=== PATIENT | female | born 1930 | race Caucasian/White ===

== ENCOUNTER 2017-02-27 22:34 | Inpatient (IN) ==
[2017-02-27] MEDS ORDERED: Vancomycin 1,000 MG in D5% in Water 250 ML IVPB ONE (22:49)
[2017-02-27] MEDS ORDERED: Piperacillin/Tazobactam 4.5 GM in D5% in Water (Mini-Bag+) 100 ML IVPB ONE (22:49)
[2017-02-27] MEDS ORDERED: *HR* Adenosine 6 MG/2 ML VIAL IVP ONE ×2 (22:59→23:15)
[2017-02-27] MEDS ORDERED: 0.9 % Sodium Chloride 1,000 ML IVC SCH (23:00)
[2017-02-27 23:09] LABS: Basophils % 0.4 %; Eosinophils # 0.2 K/mcL (0.0-0.6); Eosinophils % 1.9 %; Hematocrit 34.7 % (35.3-44.9); Hemoglobin 11.4 g/dL (11.5-15.4); Immature Granulocytes % 0.4 % (0-4); Immature Platelets 5.7 % (1.1-6.1); Lymphocytes # 1.6 K/mcL (0.6-4.6); Mean Corpuscular HGB Conc 32.9 g/dL (31.6-35.5); Mean Corpuscular Hemoglobin 31.1 pg (28.0-33.3); Mean Corpuscular Volume 94.8 fL (83.0-100.0); Mean Platelet Volume 10.9 fL (9.4-12.4); Monocytes # 0.7 K/mcL (0.0-1.3); Monocytes % 6.8 %; Neutrophils # 7.5 K/mcL (1.6-8.9); Platelet Count 203 K/mcL (140-400); Red Blood Count 3.66 M/mcL (3.82-4.97); Red Cell Distribution Width 14.1 % (11.5-14.5); Segmented Neutrophils % 74.5 %
[2017-02-27 23:14] LABS: INR 1.1; Prothrombin Time 11.9 Seconds (9.4-12.1)
[2017-02-27 23:16] LABS: Activated Partial Thrombo Time 30.3 Seconds (26.0-36.0)
[2017-02-27 23:24] LABS: Alanine Aminotransferase 12 Units/L (0-55); Albumin/Globulin Ratio 1.2 (1.1-2.2); Alkaline Phosphatase 71 Units/L (38-126); Aspartate Amino Transferase 19 Units/L (5-34); BUN/Creatinine Ratio 20 (6-26); Bilirubin,Direct 0.2 mg/dL (0.0-0.5); Bilirubin,Indirect 0.3 mg/dL (0.0-1.2); Bilirubin,Total 0.5 mg/dL (0.2-1.2); Blood Urea Nitrogen 25 mg/dL (7-20); Calcium 10.1 mg/dL (8.6-10.8); Carbon Dioxide 24 mEq/L (19-29); Chloride 106 mEq/L (98-109); Globulin 3.3 g/dL (2.4-3.5); Glucose 104 mg/dL (70-99); Osmolality,Calculated 295 (280-300); Potassium 4.1 mEq/L (3.5-4.5); Sodium 140 mEq/L (136-145); Total Protein 7.3 g/dL (6.0-8.3); eGFR For African Americans 50 (> 60); eGFR For Non-African Americans 41 (> 60)
[2017-02-27 23:25] LABS: Ethanol < 10 mg/dL (0-10)
--- NOTE | 2017-02-27 23:29 | Emergency Department Note ---
START Narrative - START START: I examined this patient and my medical decision-making was reviewed with the Resident Physician. I agree with the documented findings, disposition and treatment plan as described except to the extent set forth below. In summary 87 -year-old female with a history of hydrocephalus who presents with acute confusion as well as tachycardia found at triage. She was brought straight back. She was found to be in a supraventricular tachycardia. She was having no chest pain at the time. Her hemodynamics were stable. We did proceed with 6 mg of a done a card. She did have some improvement of heart rate but again went into SVT. Vagal maneuvers were unsuccessful. Subsequent dose of adenosine were given. She had conversion with 12 mg of a done a card. She is now in a sinus tachycardia. I am concerned for possible underlying infection which could be precipitating SVT. As such she was started on broad-spectrum antibiotics, 30 mL per kilogram fluid bolus was initiated. Chest x-ray as well as other labs are altered mental status were obtained. We are still pending advanced imaging results. Plan to disposition the patient after evaluation of results of advanced imaging. I spent greater than 35 minutes of critical care time resuscitating this acutely ill patient suffering from supraventricular tachycardia requiring multiple medications. This is excluding billable procedures.
[2017-02-27 23:45] LABS: Thyroid Stimulating Hormone 2.305 mcIU/mL (0.350-4.840)
--- NOTE | 2017-02-28 00:02 | Emergency Department Note ---
Disposition Clinical Impression: SVT (supraventricular tachycardia), ROSEY (acute kidney injury) Cerebral infarct Qualifiers: Cerebral infarction mechanism: unspecified mechanism Qualified Code(s): I63.9 - Cerebral infarction, unspecified Disposition: Admitted As Inpatient Condition: Fair Referrals: Vania Kenny MD [Primary Care Provider] - Forms: ED Satisfaction Letter Time of Disposition: 00:24 Altered Mental Status HPI - General Chief Complaint: ED Altered Mental Status Stated Complaint: AMS Time Seen by Provider: 02/27/17 22:46 Source: patient Nursing Notes Reviewed: Yes Vital Signs Reviewed: Yes - History of Present Illness HPI Narrative: Patient's age 87-year-old female who presents secondary to altered mental status times several weeks. Patient's daughter states that patient does not recognize her father intermittently for the past several weeks now. She was recently diagnosed with hydrocephalus. Earlier today patient was having episodes of increasing confusion. Patient seemed to have periods where she completely spaced out and would not respond to any interaction. Patient was brought to the ED for evaluation. Patient was found to be in SVT but currently stable. Resuscitation warranted, crash cart brought the bedside. - Related Data Allergies Allergy/AdvReac Type Severity Reaction Status Date / Time No Known Allergies Allergy Verified 02/27/17 22:44 Review of Systems: Patient denies any pain or any discomforting symptoms. No focal neurological deficits seen by family members All systems ED: reviewed and negative except as stated. Review of Systems: As Per HPI Constitutional: Denies: fever Eyes: Denies: eye pain, vision change ENT ED: Denies: congestion Cardiovascular: Denies: chest pain, palpitations Respiratory: Denies: cough, dyspnea Gastrointestinal: Denies: abdominal pain, nausea, vomiting, diarrhea, hematemesis Genitourinary: Denies: urgency, dysuria Musculoskeletal: Denies: back pain, neck pain Integumentary: Denies: rash, abrasion Neurological: Denies: headache, weakness Psychiatric: Denies: anxiety Endocrine: Denies: fatigue Hematological/Lymphatic: Denies: easy bleeding Past Medical History - Past Medical History Attestation: Yes The following information was validated with the patient. Source: patient, obtained from family Medical history: Reports: other Psychiatric history: Reports: depression - Social History Smoking Status: Never smoker Alcohol use: Reports: none Drug use: Reports: none Physical Exam Vital Signs Temperature 98 F 02/27/17 22:38 Pulse Rate 169 02/27/17 22:38 Respiratory Rate 20 02/27/17 22:38 Blood Pressure 108/70 02/27/17 22:38 O2 Sat by Pulse Oximetry 97 02/27/17 22:38 Temperature 98 F 02/27/17 22:38 Pulse Rate 89 02/28/17 00:00 Respiratory Rate 16 02/28/17 00:00 Blood Pressure 152/88 02/28/17 00:00 O2 Sat by Pulse Oximetry 100 02/28/17 00:00 Oxygen Delivery Oxygen Delivery Nasal Cannula -General Appearance: Patient is a 57-year-old female who is alert and oriented 3 and in no acute distress. Patient lying comfortably and answers all questions -Neurological exam: Cranial nerves II-12 intact, no focal deficits observed, strength equal 5/5 bilaterally in upper and lower extremities, cerebellar motion test negative. Negative loss of sensation - Head Head exam: atraumatic, normocephalic, normal inspection - Eye Eye exam: Present: normal appearance, PERRL, EOMI, negative for scleral icterus negative for conjunctival pallor - ENT ENT exam: normal exam, normal oropharynx, mucous membranes moist - Neck Neck exam: Present: normal inspection, full ROM, trachea midline, negative JVD - Chest Chest inspection: Present: Patient has bilateral equal rise and fall of chest wall. Non-tender to palpation. - Respiratory Respiratory exam: Clear to auscultation bilaterally without wheezes rales or rhonchi Cardiovascular Cardiovascular exam: Present: Rapid rate, normal rhythm, normal heart sounds, without murmurs rubs or gallops. - Abdominal Exam Abdominal exam: Present: soft, nondistended, Non-Tender light and deep palpation in all quadrants. Bowel sounds normoactive throughout all 4 quadrants. Negative for hyper or hyperresonance. - Extremities Exam Extremities exam: Present: normal inspection, full ROM - Back Exam Back exam: Present: normal inspection, full ROM. Absent: tenderness, CVA tenderness (R), CVA tenderness (L) - Psychiatric Psychiatric exam: Present: normal affect, normal mood - Skin Skin exam: Present: warm, dry, intact, normal color - General General appearance: alert, in no apparent distress Course - Consultations Consultation #1: Dr. Abdullahi lance the hospitalist has accepted for admission 0010 hours Time: 00:11 Vital Signs Temperature 98 F 02/27/17 22:38 Pulse Rate 169 02/27/17 22:38 Respiratory Rate 20 02/27/17 22:38 Blood Pressure 108/70 02/27/17 22:38 O2 Sat by Pulse Oximetry 97 02/27/17 22:38 Temperature 98 F 02/27/17 22:38 Pulse Rate 169 02/27/17 22:38 Respiratory Rate 20 02/27/17 22:38 Blood Pressure 108/70 02/27/17 22:38 O2 Sat by Pulse Oximetry 97 02/27/17 22:38 Oxygen Delivery Oxygen Delivery Room Air Altered Mental Status - MDM Narrative Medical decision making narrative: Patient presents with worsening changes to her mental status, patient presents in SVT. Resuscitation the cardioversion ensued. Patient received 2 large-bore IVs, fluids, defib pads placed on patient's chest, labs and cultures drawn to investigate for possible infectious etiology. CT head ordered. Patient will headdown after resuscitation. Vagal maneuvers of bearing down or tries but were ineffective. Ordered 6 mg adenosine. EKG 12-lead was run and adenosine was pushed. Patient temporarily went back into normal sinus rhythm. No signs of dysrhythmia. After minute in sinus rhythm patient reassessed back into SVT. 12 mg adenosine was then ordered and pushed. Patient returned back to sinus rhythm and stayed. The rest patient's workup for labs and imaging has continued. Head CT shows Chest X-Ray 02/27/17 22:46 IMPRESSION: No acute cardiopulmonary disease. D/ / Rafy Rios MD / Rafy Rios MD Interpreting Provider: Rafy Rios MD Head CT 02/27/17 22:46 IMPRESSION: 1. No definite acute abnormality detected. 2. More focal area of hypoattenuation involving the white matter in the posterior right frontal region, which could conceivably represent a subacute infarct. However, this could also represent more focal small vessel ischemic disease. Findings were discussed with Crow Saldana at 11:46 pm on 02/27/2017. D/ / Elvin Wheat MD / Elvin Wheat MD Interpreting Provider: Elvin Wheat MD Patient is being admitted for new-onset cerebral infarct unknown time of onset. Family is unable to to give last known well but give a history symptoms started outside of the window for medical intervention. Plan is to admit patient to hospitalist service for neuro consultation. Patient has a NIH score of 14 not being able to convey her age correctly. Patient is around 325 aspirin by mouth. Patient will be admitted to the hospital for further workup. Patient has been accepted to hospitalist service by Dr. Lance. Patient family understands and agrees to treatment plan. - Medical Records Medical records reviewed: Yes I reviewed the patient's medical records. This is patient's first time. No previous records found - Lab Data Lab results reviewed: Yes I reviewed the patient's lab results. Lab results narrative: Short CBC 02/27/17 Range/Units 23:03 WBC 10.1 (4.3-11.1) K/mcL Hgb 11.4 L (11.5-15.4) g/dL Hct 34.7 L (35.3-44.9) % Plt Count 203 (140-400) K/mcL Neutrophils # 7.5 (1.6-8.9) K/mcL BMP 02/27/17 Range/Units 23:03 Sodium 140 (136-145) mEq/L Potassium 4.1 (3.5-4.5) mEq/L Chloride 106 (98-109) mEq/L Carbon Dioxide 24 (19-29) mEq/L BUN 25 H (7-20) mg/dL Creatinine 1.24 H (0.57-1.11) mg/dL Glucose 104 H (70-99) mg/dL Calcium 10.1 (8.6-10.8) mg/dL Cardiac Enzymes 02/27/17 Range/Units 23:03 Troponin I 0.00 (0-0.03) ng/mL Liver Function 02/27/17 Range/Units 23:03 Total Bilirubin 0.5 (0.2-1.2) mg/dL Direct Bilirubin 0.2 (0.0-0.5) mg/dL AST 19 (5-34) Units/L ALT 12 (0-55) Units/L Alkaline Phosphatase 71 (38-126) Units/L Albumin 4.0 (3.5-5.0) g/dL Result diagrams: 02/27/17 23:03 02/27/17 23:03 Lab Results 02/27/17 02/27/17 02/27/17 Range/Units 23:03 23:03 23:03 WBC 10.1 (4.3-11.1) K/mcL RBC 3.66 L (3.82-4.97) M/mcL Hgb 11.4 L (11.5-15.4) g/dL Hct 34.7 L (35.3-44.9) % MCV 94.8 (83.0-100.0) fL MCH 31.1 (28.0-33.3) pg MCHC 32.9 (31.6-35.5) g/dL RDW 14.1 (11.5-14.5) % Plt Count 203 (140-400) K/mcL MPV 10.9 (9.4-12.4) fL Immature Gran % 0.4 (0-4) % Seg Neutrophils % 74.5 % Lymphocytes % 16.0 % Monocytes % 6.8 % Eosinophils % 1.9 % Basophils % 0.4 % Neutrophils # 7.5 (1.6-8.9) K/mcL Lymphocytes # 1.6 (0.6-4.6) K/mcL Monocytes # 0.7 (0.0-1.3) K/mcL Eosinophils # 0.2 (0.0-0.6) K/mcL Basophils # 0.0 (0.0-0.2) K/mcL Immature Plt Fraction 5.7 (1.1-6.1) % PT 11.9 (9.4-12.1) Seconds INR 1.1 APTT 30.3 (26.0-36.0) Seconds Sodium 140 (136-145) mEq/L Potassium 4.1 (3.5-4.5) mEq/L Chloride 106 (98-109) mEq/L Carbon Dioxide 24 (19-29) mEq/L BUN 25 H (7-20) mg/dL Creatinine 1.24 H (0.57-1.11) mg/dL Est GFR ( Amer) 50 L (> 60) Est GFR (Non-Af Amer) 41 L (> 60) BUN/Creatinine Ratio 20 (6-26) Glucose 104 H (70-99) mg/dL Calculated Osmolality 295 (280-300) Lactic Acid (0.5-2.2) mmol/L Calcium 10.1 (8.6-10.8) mg/dL Total Bilirubin 0.5 (0.2-1.2) mg/dL Direct Bilirubin 0.2 (0.0-0.5) mg/dL Indirect Bilirubin 0.3 (0.0-1.2) mg/dL AST 19 (5-34) Units/L ALT 12 (0-55) Units/L Alkaline Phosphatase 71 (38-126) Units/L Troponin I (0-0.03) ng/mL Serum Total Protein 7.3 (6.0-8.3) g/dL Albumin 4.0 (3.5-5.0) g/dL Globulin 3.3 (2.4-3.5) g/dL Albumin/Globulin Ratio 1.2 (1.1-2.2) TSH 2.305 (0.350-4.840) mcIU/mL Ethyl Alcohol < 10 (0-10) mg/dL 02/27/17 02/27/17 Range/Units 23:03 23:03 WBC (4.3-11.1) K/mcL RBC (3.82-4.97) M/mcL Hgb (11.5-15.4) g/dL Hct (35.3-44.9) % MCV (83.0-100.0) fL MCH (28.0-33.3) pg MCHC (31.6-35.5) g/dL RDW (11.5-14.5) % Plt Count (140-400) K/mcL MPV (9.4-12.4) fL Immature Gran % (0-4) % Seg Neutrophils % % Lymphocytes % % Monocytes % % Eosinophils % % Basophils % % Neutrophils # (1.6-8.9) K/mcL Lymphocytes # (0.6-4.6) K/mcL Monocytes # (0.0-1.3) K/mcL Eosinophils # (0.0-0.6) K/mcL Basophils # (0.0-0.2) K/mcL Immature Plt Fraction (1.1-6.1) % PT (9.4-12.1) Seconds INR APTT (26.0-36.0) Seconds Sodium (136-145) mEq/L Potassium (3.5-4.5) mEq/L Chloride (98-109) mEq/L Carbon Dioxide (19-29) mEq/L BUN (7-20) mg/dL Creatinine (0.57-1.11) mg/dL Est GFR ( Amer) (> 60) Est GFR (Non-Af Amer) (> 60) BUN/Creatinine Ratio (6-26) Glucose (70-99) mg/dL Calculated Osmolality (280-300) Lactic Acid 1.4 (0.5-2.2) mmol/L Calcium (8.6-10.8) mg/dL Total Bilirubin (0.2-1.2) mg/dL Direct Bilirubin (0.0-0.5) mg/dL Indirect Bilirubin (0.0-1.2) mg/dL AST (5-34) Units/L ALT (0-55) Units/L Alkaline Phosphatase (38-126) Units/L Troponin I 0.00 (0-0.03) ng/mL Serum Total Protein (6.0-8.3) g/dL Albumin (3.5-5.0) g/dL Globulin (2.4-3.5) g/dL Albumin/Globulin Ratio (1.1-2.2) TSH (0.350-4.840) mcIU/mL Ethyl Alcohol (0-10) mg/dL - Radiology Data Radiology results reviewed: Yes I reviewed the patient's radiology results. Head CT 02/27/17 22:46 IMPRESSION: 1. No definite acute abnormality detected. 2. More focal area of hypoattenuation involving the white matter in the posterior right frontal region, which could conceivably represent a subacute infarct. However, this could also represent more focal small vessel ischemic disease. Findings were discussed with Crow Saldana at 11:46 pm on 02/27/2017. D/ / Elvin Wheat MD / Elvin Wheat MD Interpreting Provider: Elvin Wheat MD - EKG Data EKG attestation: Yes I reviewed and interpreted this EKG. EKG results narrative: EKG taken 02/27/2017 at 2240 hrs. shows SVT at a rate of [address] elevations or depressions any leads. No previous EKG for comparison. EKG taken after first 6 g of adenosine shows conversion to sinus tachycardia for a brief moment. Third EKG taken at 2312 hrs. shows sinus tachycardia that has been sustained after administration of 12 mg of adenosine. TPA Checklist - LKW: 3-4.5 hrs Add. Warnings/Precautions Patient/family understanding: The patient/family members have been counseled and understood the risk, benefit , and alternatives of treatment. NIH Stroke Scale - Level of Consciousness LOC: Alert - LOC Questions LOC Questions: Answers one correctly - LOC Commands LOC Commands: Performs both correctly - Best Gaze Best Gaze: Normal - Visual Visual: No visual loss - Facial Palsy Facial Palsy: Normal - Motor Arms Motor Arm-Left: No drift for 10 seconds Motor Arm-Right: No drift for 10 seconds - Motor Legs Motor Leg-Left: No drift for 5 seconds Motor Leg-Right: No drift for 5 seconds - Limb Ataxia Limb Ataxia: Absent of affected limb too weak to perform exam - Sensory Sensory: Normal - Best Language Best Language: No aphasia - Dysarthria Dysarthria: Normal - Extinction and Inattention Extinction and Inattention: Normal - NIHSS Total Score NIHSS Total Score: 1
[2017-02-28] MEDS ORDERED: Aspirin 325 MG TABLET PO ONE (00:08)
[2017-02-28] MEDS ORDERED: Naloxone 0.4 MG/ML INJ IVP PRN (00:34)
[2017-02-28] MEDS ORDERED: Ondansetron 4 MG/2 ML VIAL IVP PRN (00:34)
[2017-02-28] MEDS ORDERED: 0.9 % Sodium Chloride 1,000 ML IVC SCH (00:45)
--- NOTE | 2017-02-28 00:56 | Internal Med History&Physical ---
Date of Encounter: 02/28/17 Time of Encounter: 00:53 Assessment and Plan (1) Encephalopathy Current visit: Yes Status: Acute subacute change. Suspect due to underlying, progressive dementia subtype with hallucination and functional changes ? Was apparently worked up at [place] and reported hydrocephalus ? But CT head here demonstrated volume loss probably due to age and white matter changes suspicious for old infarct ? Consult neurology to assist in eval. PT/OT. (2) SVT (supraventricular tachycardia) Current visit: Yes Status: Acute aborted with adenosine. Tele (3) ROSEY (acute kidney injury) Current visit: Yes Status: Acute mild. IVF (4) Cerebral infarct Current visit: Yes Status: Acute possible subacute event. Neuro eval above Qualifiers: Cerebral infarction mechanism: unspecified mechanism Qualified Code(s): I63.9 - Cerebral infarction, unspecified Internal Medicine - H&P: HPI Chief complaint: AMS, dizzyness, unsteadiness, visual hallucination History of present illness: Ms. Olguin is a 87 year old female who is previously healthy, on no medications who presents with worsening mental changes in the last 2 months. She lives alone with and had been functioning well up to 2 months ago approximately with functional decline in ambulatory status needing a 3 prong cane for unsteadiness and dizziness. 1 month ago, she had a transient episode of not recognizing her and mistook her for a stranger. This became worse over the last week and it appears that she is selectively not recognizing her (and not family members) and wanted him out of the house. She also had visual hallucinations of people that were not present. Family reported a shuffling gait. While in the ER, she was found to be in SVT and converted with 6 mg of adenosine. No known cardiac hx reported Past Med Surg Social Fam HX - Past Medical History Medical history: other Psychiatric history: depression - Social History Smoking Status: Never smoker Alcohol use: none Drug use: none Internal Medicine - H&P: Meds Allergies No Known Allergies Allergy (Verified 02/27/17 22:44) All Systems PM: A 10-system review of systems was performed and is negative for pertinent findings except as documented above in the HPI. Review of systems: ROS 14 point review of systems reviewed as best as possible given presentation. Pertinent positive or negative as per HPI or otherwise reviewed as negative - Constitutional Vitals: Temp Pulse Resp BP Pulse Ox 98 F 89 16 162/101 100 02/27/17 22:38 02/28/17 00:27 02/28/17 00:51 02/28/17 00:51 02/28/17 00:00 Exam: General - AAO x 3 Psych - Appropriate affect/speech. No agitation Eyes - CHARLINE. Eye lids intact. No scleral icterus ENT - Oral mucosa pink, dentition intact. External ear clear/dry/intact. No thyromegaly Lymphatics - No cervical/inguinal lympadenopathy Neuro - No gross peripheral or central neuro deficits with intact CN 2-12 exam Heart - Sinus. RRR. S1 and S2 present. No added HS/murmurs appreciated. No elevated JVD appreciated. No calf swellings/erythema Lung - Adequate air entry b/l, No crackes/wheezes appreciated GI - Soft, non-tender. No hepatosplenomegaly/ascities. BS+ - No CVA/suprapubic tenderness or palpable bladder distension Skin - Intact. No rash/petechiae/ecchymosis. Warm extremities MSK - Joints with normal ROM. No joint swellings Internal Med - H&P Results - Labs CBC & Chem 7: 02/27/17 23:03 02/27/17 23:03
[2017-02-28 01:17] LABS: Bilirubin,Urine Negative (Negative); Blood,Urine Negative (Negative); Clarity,Urine Clear (Clear); Color,Urine Yellow (Yellow); Glucose,Urine (UA) Normal (Normal); Ketones,Urine Negative (Negative); Leukocyte Esterase,Urine Negative (Negative); Nitrite,Urine Negative (Negative); Protein,Urine Negative (Neg-Trace); Specific Gravity,Urine 1.011 (1.010-1.025); Urobilinogen,Urine Normal (Normal)
[2017-02-28 01:51] LABS: Amphetamine Screen,Urine Negative ng/mL (Cutoff=1000); Barbiturate Screen,Urine Negative ng/mL (Cutoff=200); Benzodiazepines Screen,Urine Negative ng/mL (Cutoff=200); Cannabinoid Screen,Urine Negative ng/mL (Cutoff = 50); Cocaine Screen,Urine Negative ng/mL (Cutoff= 300); Opiate Screen,Urine Negative ng/mL (Cutoff=300); Phencyclidine Screen,Urine Negative ng/mL (Cutoff=25)
[2017-02-28 04:52] LABS: BUN/Creatinine Ratio 21 (6-26); Blood Urea Nitrogen 21 mg/dL (7-20); Calcium 9.2 mg/dL (8.6-10.8); Carbon Dioxide 27 mEq/L (19-29); Chloride 110 mEq/L (98-109); Chol/HDL Ratio 3.3 (0-4.9); Cholesterol 214 mg/dL (< 200); Glucose 85 mg/dL (70-99); HDL Cholesterol 65 mg/dL (40-59); LDL Cholesterol,Calculated 139 mg/dL (0-99); Osmolality,Calculated 298 (280-300); Potassium 4.1 mEq/L (3.5-4.5); Sodium 143 mEq/L (136-145); Triglycerides 50 mg/dL (< 150); eGFR For African Americans > 60 (> 60); eGFR For Non-African Americans 52 (> 60)
[2017-02-28] MEDS: Aspirin 81 MG TAB.CHEW PO SCH (07:48)
[2017-02-28] MEDS: *HR* Heparin 5,000 UNIT/ML VIAL SQ SCH ×2 (07:48→17:21)
[2017-02-28] MEDS ORDERED: Famotidine 20 MG TABLET PO SCH (09:00)
--- NOTE | 2017-02-28 11:01 | Event Note ---
<JanessausNoesoniya - Last Filed: 02/28/17 16:13> Date of Encounter: 02/28/17 Time of Encounter: 10:53 87 year old female evaluated at bedside. She is alert and oriented to person and place, in no acute distress. Patient denies nausea, vomiting, diarrhea, fever, chills. Multiple family members were in the room with patient. Physical Exam: General: alert and oriented to person and place, in no acute distress Eyes: PERRL, mild left eye ptosis CV: RRR, no murmurs, rubs, gallops Respiratory: bilateral upper lobe rales noted Extremities: no cyanosis or edema or clubbing noted. Gait: patient has unsteady gait and cannot walk without support of cane Neuro: decreased cerebellar function noted, decreased muscle strength testing. Assessment/Plan 1. Encephalopathy CT head showed possible subacute infarct in posterior frontal region Etiologies include: dementa vs. vitamin deficiency vs. hydrocephalus Plan: Appreciate neuro recs Started Seroquel ER HS MRI head pending PT/OT nutrition ocnsulted check folate, B12, RPR Echo pending carotid duplex pending 2. SVT resolved with adenosine. continue to monitor with tele 3. ROSEY: resolved with IVF 4. cerebral infarct Plan as #1 above 5. DVT prophylaxis Heparin SQ <Kevin Garcia - Last Filed: 02/28/17 17:05> Date of Encounter: 02/28/17 I examined this patient and my medical decision-making was reviewed with the Resident Physician on 02/28/17. I agree with the documented findings, disposition and treatment plan as described except to the extent set forth below. 87 F Seen and evaluated with family at bedside She has been having worsening confusion, hallucination and new urinary incontinence as well as unsteady gait Secondary cause of dementia work up negative so far R/O Normal pressure hydrocephalus, agree with Brain MRI Add Seroquel for Agitation/behavioural changes ROSEY is improving, D/C IVF SVT has resolved, continue telemetry Follow carotid doppler and ECHO Rest of details as above
[2017-02-28] MEDS ORDERED: *HR* Adenosine 12 MG/4 ML VIAL IV ONE (11:20)
--- NOTE | 2017-02-28 13:30 | Neurology - Consult Note ---
Date of Encounter: 02/28/17 Time of Encounter: 13:27 Assessment and Plan (1) Dementia with behavioral disturbance Current Visit: Yes Status: Acute This is an 87 year old woman who has been experiencing slowly progressive cognitive decline with significant behavioral changes with visual hallucinations. per history, this occurred over the last 4-5 months with then accelerated decline over the last few weeks which may be related to ongoing medical conditions, including renal insufficiency and SVT. Patient;s symptoms improved since admission. Will recommend MRI of brain to rule out new infarct. Laboratory study already ordered. Will recommend small dose of ER form of seroquel for hallucinations. Possible side effects discussed with family members. Qualifiers: Dementia type: Alzheimer's disease Alzheimer's disease onset: late-onset Qualified Code(s): G30.1 - Alzheimer's disease with late onset; F02.81 - Dementia in other diseases classified elsewhere with behavioral disturbance (2) Normal pressure hydrocephalus Current Visit: Yes Status: Acute Patient's CT of head showed features of mild NPH. Clinically she has dementia and gait difficulty but no bowel and bladder incontinence. Due to her age and probable dementia it is felt that NPH is likely not the sole cause of her cognitive decline and that surgical intervention is of unclear benefits. But option of surgical intervention was discussed with the family members. Plan is to treat her conservatives and may be a repeat CT of head can be done in 3 months and may be even a therapeutic LP can be done at an outpatient. History of Present Illness Chief complaint: visual hallucination and altered mental status HPI: Ms. Olguin is a 87 year old female with PMH significant for dementia who presented with worsening cognitive decline. Patient interviewed in the presence of her son, daughter and . Patient currently feels fine and sits comfortably in the chair, is able to walk without assistance. Daughter who knew better of her medical condition reports a gradually worsening cognitive decline over the last 4-5 months with accelerated decline in the last two weeks. Patient has been experiencing visual hallucinations and some paranoid ideation, especially in the form of not recognizing her and thought she saw two of her in the room and bunch of children as well. Daughter relates that at times it was hard to convince her that the person was her . Son mentions that that visual hallucination of not recognizing her only occur with her , no body else. Also patient mentions that over the last few months they noticed that her walking is unsteady. She did fall few times in the last few months but no significant injuries reported. It was reported that the patient had a CT of head done in December/2016 showing findings suggesting NPH due to presence of enlargement of bilateral ventricles out of proportion of sulci atrophy. it was thought that the patient may have normal pressure hydrocephalus. she was suggested to see neurosurgery at [facility] but she has not. Patient had repeat CT of head here at ER but no reports of hydrocephalus. Some subtle focal hypointensity noted. MRI of brain recommended for further evaluation. Patient was given Donezepil by PCP but it caused some GI symptoms and it had to be D/Pee. Past Med Surg Social Fam HX - Past Medical History Medical history: other Psychiatric history: depression - Social History Smoking Status: Never smoker Alcohol use: none Drug use: none Medications and Allergies Ergocalciferol (VITAMIN D2) [Vitamin D] 800 unit PO DAILY 02/28/17 [History] Multivit with Calcium,Iron,Min [One Daily Women's] 1 tab PO DAILY 02/28/17 [ History] Mv-Mn/FA/Vit K1/Lycop/Lut/Zeax [Ocuvite Eye + Multi Tablet] 1 tab PO DAILY 02/28 [History] Allergies No Known Allergies Allergy (Verified 02/27/17 22:44) All Systems: A 10-system review of systems was performed and is negative for pertinent findings except as documented above in the HPI. Physical Examination - Vital Signs Vital Signs: Initial Vital Signs Temp Pulse Resp BP Pulse Ox 98 F 169 20 108/70 97 02/27/17 22:38 02/27/17 22:38 02/27/17 22:38 02/27/17 22:38 02/27/17 22:38 - Neurologic Sensorimotor examination: other (Grossly intact) Detailed motor examination: grossly full strength in all extremities Motor examination - right side: 5/5: deltoids, biceps, triceps, wrist flexion, wrist extension, farmworker fruit, hip flexors, tibialis Anterior, quadriceps, toe extension (EHL), plantarflexion Motor examination - left side: 5/5: deltoids, biceps, triceps, wrist flexion, wrist extension, hip flexors, farmworker fruit, quadriceps, tibialis Anterior, toe extension (EHL), plantarflexion Detailed sensory examination: other (Grossly intact) Reflex and gait examination: intact Reflexes: Biceps: 1+, Triceps: 1+, Brachioradialis: 1+, Patella: 1+, Achilles: 1 + Mental Status Examination: awake, alert, oriented to person, oriented to place, oriented to time, follows commands appropriately, answers questions appropriately, no agnosia, no aphasia, no aproxia Cranial nerve examination: PERRL, EOMI, visual la intact, corneal reflexes brisk symmetrically, sensory to face intact, mastication intact, no facial asymmetry is present, no dysarthria, hearing is intact symmetrically, soft palate elevates bilaterally upon phonation, gag reflex intact, flexes SCM and trapezius muscles symmetrically with full power, tongue protrudes midline, no atrophy or facial fasiculations present Results - Laboratory Findings CBC and BMP: 02/27/17 23:03 02/28/17 04:29 Abnormal lab findings: Abnormal lab results RBC 3.66 M/mcL (3.82-4.97) L 02/27/17 23:03 Hgb 11.4 g/dL (11.5-15.4) L 02/27/17 23:03 Hct 34.7 % (35.3-44.9) L 02/27/17 23:03 Chloride 110 mEq/L (98-109) H 02/28/17 04:29 BUN 21 mg/dL (7-20) H 02/28/17 04:29 Est GFR (Non-Af Amer) 52 (> 60) L 02/28/17 04:29 POC Glucose 93 (58-89) H 02/28/17 11:04 Cholesterol 214 mg/dL (< 200) H 02/28/17 04:29 LDL Cholesterol, Calc 139 mg/dL (0-99) H 02/28/17 04:29 HDL Cholesterol 65 mg/dL (40-59) H 02/28/17 04:29 Consult Discharge Plan - Plan Referrals: Vania Kenny MD [Primary Care Provider] - (called twice and left message)
--- NOTE | 2017-02-28 20:27 | Electrocardiograph Report ---
[address] [place] [address] Test Date: 2017-02-27 Pat Name: Jina Olguin Department: 105 Room: 2A23 Gender: F Head Miller: : 1930 Requested By: Kevin Garcia Order Number: [id number] Reading MD: Prabhakar Carter MD Measurements Intervals [place] Rate: 168 P: GA: 0 QRS: 28 QRSD: 85 T: 43 QT: 263 QTc: 355 Interpretive Statements SUPRAVENTRICULAR TACHYCARDIA Electronically Signed On 02-28-2017 20:25:55 EDT by Prabhakar Carter MD
--- NOTE | 2017-02-28 20:28 | Electrocardiograph Report ---
[place] [address] Test Date: 2017-02-27 Pat Name: Jina Olguin Department: 104 Room: 2A23 Gender: F Chief Service Dispatcher: EMELY : 1930 Requested By: Crow Saldana Order Number: [id number] Reading MD: Prabhakar Carter MD Measurements Intervals [place] Rate: 108 P: 72 ME: 193 QRS: 75 QRSD: 75 T: 65 QT: 306 QTc: 370 Interpretive Statements SINUS TACHYCARDIA Electronically Signed On 02-28-2017 20:26:26 EDT by Prabhakar Carter MD
[2017-03-01] MEDS ORDERED: Haloperidol Lactate 5 MG/ML VIAL IVP ONE (03:51)
[2017-03-01] MEDS ORDERED: Haloperidol Lactate 5 MG/ML VIAL ONE (03:59)
[2017-03-01 07:54] LABS: Basophils % 0.6 %; Eosinophils # 0.3 K/mcL (0.0-0.6); Eosinophils % 4.5 %; Hematocrit 34.3 % (35.3-44.9); Hemoglobin 11.2 g/dL (11.5-15.4); Immature Granulocytes % 0.3 % (0-4); Lymphocytes # 1.5 K/mcL (0.6-4.6); Lymphocytes % 21.1 %; Mean Corpuscular HGB Conc 32.7 g/dL (31.6-35.5); Mean Corpuscular Hemoglobin 30.8 pg (28.0-33.3); Mean Corpuscular Volume 94.2 fL (83.0-100.0); Monocytes # 0.7 K/mcL (0.0-1.3); Neutrophils # 4.5 K/mcL (1.6-8.9); Platelet Count 153 K/mcL (140-400); Red Blood Count 3.64 M/mcL (3.82-4.97); Segmented Neutrophils % 63.5 %
[2017-03-01 08:12] LABS: BUN/Creatinine Ratio 20 (6-26); Blood Urea Nitrogen 18 mg/dL (7-20); Calcium 9.6 mg/dL (8.6-10.8); Carbon Dioxide 22 mEq/L (19-29); Chloride 108 mEq/L (98-109); Glucose 87 mg/dL (70-99); Osmolality,Calculated 289 (280-300); Potassium 4.6 mEq/L (3.5-4.5); Sodium 139 mEq/L (136-145); eGFR For African Americans > 60 (> 60); eGFR For Non-African Americans 58 (> 60)
[2017-03-01] MEDS: *HR* Heparin 5,000 UNIT/ML VIAL SQ SCH ×2 (09:34→17:05)
[2017-03-01] MEDS: amLODIPine 5 MG TABLET PO SCH ×2 (09:35→09:41)
[2017-03-01] MEDS: Aspirin 81 MG TAB.CHEW PO SCH (09:41)
[2017-03-01] MEDS: Famotidine 20 MG TABLET PO SCH (09:41)
[2017-03-01] MEDS ORDERED: Sennosides 8.6 MG TABLET PO PRN (10:46)
[2017-03-01 10:50] LABS: Folate 16.6 ng/mL (7.0-31.4)
[2017-03-01] MEDS ORDERED: Haloperidol Lactate 5 MG/ML VIAL IVP PRN (11:05)
[2017-03-01] MEDS: Sennosides 8.6 MG TABLET PO SCH ×2 (15:11→20:11)
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
--- NOTE | 2017-03-01 17:56 | Neurology Progress Note ---
Date of Encounter: 03/01/17 Time of Encounter: 17:51 Assessment and Plan (1) Dementia with behavioral disturbance Current Visit: Yes Status: Acute As discussed earlier, likely patient has developed dementia with behavioral manifestations, over the last few months Will try Seroquel er 25 mg daily, May benefit from acetylcholinesterase therapy but recognized that he has had some adverse effect from taking Aricept. She will be follow up with me in neurology in 03/2017. May try namenda at the time. Treatment largely empirical and symptomatic though. Will sign off please call if any questions Qualifiers: Dementia type: Alzheimer's disease Alzheimer's disease onset: late-onset Qualified Code(s): G30.1 - Alzheimer's disease with late onset; F02.81 - Dementia in other diseases classified elsewhere with behavioral disturbance (2) Normal pressure hydrocephalus Current Visit: Yes Status: Acute Subjective Principal diagnosis: dementia with behavioral changes Interval history: Patient seen and examined. She is feeling well and is in sitting position and happily eating. Daughter mentioned that she ate usually large meal today. No complaints. MRI of brain completed and reviewed. it showed no acute intracranial abnormality. Objective - Constitutional Vitals: Temp Pulse Resp BP Pulse Ox 98.1 F 88 16 110/74 98 03/01/17 15:59 03/01/17 15:59 03/01/17 15:59 03/01/17 15:59 03/01/17 15:59 - Neurological Exam Sensorimotor examination: Present: other (Grossly intact) Motor Examination: Present: grossly full strength in all extremities Motor examination - left side: 5/5: deltoids, biceps, triceps, wrist flexion, wrist extension, hip flexors, stucco applicator, quadriceps, tibialis Anterior, toe extension (EHL), plantarflexion Sensation intact: Present: other (Grossly intact) Reflex and gait examination: intact Mental Status Examination: Present: awake, alert, oriented to person, oriented to place, oriented to time, follows commands appropriately, answers questions appropriately, no agnosia, no aphasia, no aproxia Cranial nerve examination: Present: PERRL, EOMI, visual la intact, corneal reflexes brisk symmetrically, sensory to face intact, mastication intact, no facial asymmetry is present, no dysarthria, hearing is intact symmetrically, soft palate elevates bilaterally upon phonation, gag reflex intact, flexes SCM and trapezius muscles symmetrically with full power, tongue protrudes midline, no atrophy or facial fasiculations present Results - Laboratory Findings CBC and BMP: 03/01/17 07:47 03/01/17 07:47 Abnormal lab findings: Abnormal lab results RBC 3.64 M/mcL (3.82-4.97) L 03/01/17 07:47 Hgb 11.2 g/dL (11.5-15.4) L 03/01/17 07:47 Hct 34.3 % (35.3-44.9) L 03/01/17 07:47 Potassium 4.6 mEq/L (3.5-4.5) H 03/01/17 07:47 Est GFR (Non-Af Amer) 58 (> 60) L 03/01/17 07:47 Cholesterol 214 mg/dL (< 200) H 02/28/17 04:29 LDL Cholesterol, Calc 139 mg/dL (0-99) H 02/28/17 04:29 HDL Cholesterol 65 mg/dL (40-59) H 02/28/17 04:29 Consult Discharge Plan - Plan Referrals: Vania Kenny MD [Primary Care Provider] - (called twice and left message)
[2017-03-01 23:22] LABS: Basophils % 0.4 %; Eosinophils # 0.3 K/mcL (0.0-0.6); Eosinophils % 3.7 %; Hematocrit 32.3 % (35.3-44.9); Hemoglobin 10.7 g/dL (11.5-15.4); Immature Granulocytes % 0.7 % (0-4); Lymphocytes # 1.5 K/mcL (0.6-4.6); Lymphocytes % 20.7 %; Mean Corpuscular HGB Conc 33.1 g/dL (31.6-35.5); Mean Corpuscular Hemoglobin 31.6 pg (28.0-33.3); Mean Corpuscular Volume 95.3 fL (83.0-100.0); Mean Platelet Volume 10.9 fL (9.4-12.4); Monocytes # 0.6 K/mcL (0.0-1.3); Monocytes % 8.2 %; Neutrophils # 4.7 K/mcL (1.6-8.9); Platelet Count 189 K/mcL (140-400); Red Blood Count 3.39 M/mcL (3.82-4.97); Red Cell Distribution Width 14.2 % (11.5-14.5); Segmented Neutrophils % 66.3 %
[2017-03-01 23:34] LABS: Calcium 9.4 mg/dL (8.6-10.8)
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
[2017-03-02] MEDS: *HR* Heparin 5,000 UNIT/ML VIAL SQ SCH ×2 (06:53→17:44)
[2017-03-02] MEDS ORDERED: 0.9 % Sodium Chloride 500 ML IVC ONE (08:36)
--- NOTE | 2017-03-02 09:14 | Internal Med Progress Note ---
<Rebekah Metcalf - Last Filed: 03/02/17 11:43> Date of Encounter: 03/02/17 Time of Encounter: 09:10 - Assessment and plan (1) ROSEY (acute kidney injury) Current Visit: Yes Status: Acute Assessment and plan: patient's ROSEY had initially resolved, but Cr this am was 1.49, normal yesterday. etiology unclear at this time. patient states she has been drinking adequately yesterday. Plan: repeat BMP urinalysis urine sodium and urine Cr pending. encourage oral hydration. 500cc bolus given this morning. will re check tomorrow morning. (2) Encephalopathy Current Visit: Yes Status: Acute Assessment and plan: CT head showed possible subacute infarct in posterior frontal region Etiologies include: dementa MRI of head showed no acute infarct. Folate, B12 normal. Echo showed mild LV systolic dysfunction, LVEF 40-45%, mild LV hypokinesis, mild asymmetric LV basal septal hypertrophy, no evidence of LVOT obstruction. mild diastolic dysfunction. mild aortic and mitral regurg, no pulmonary HTN prelim vascular study showed normal bilateral carotids. RPR normal. Plan: Appreciate neuro recs Started Seroquel ER HS PT/OT recommended outpatient rehab nutrition consulted continue aricept. ROSEY workup (3) SVT (supraventricular tachycardia) Current Visit: Yes Status: Resolved Assessment and plan: resolved with adenosine. continue to monitor with tele (4) Cerebral infarct Current Visit: Yes Status: Acute Assessment and plan: plan as above Qualifiers: Cerebral infarction mechanism: unspecified mechanism Qualified Code(s): I63.9 - Cerebral infarction, unspecified (5) DVT prophylaxis Current Visit: Yes Status: Acute Assessment and plan: heparin SQ - Subjective Interval history: 87 year old female evaluated at bedside. patient was laying in bed asleep during exam. she denies nausea, vomiting, diarrhea, fever, chills, chest pain, shortness of breath. she states she has been eating and drinking fine today. she denies any further complaints. - Constitutional Vitals: Temp Pulse Resp BP Pulse Ox 97.7 F 62 16 109/62 99 03/02/17 07:21 03/02/17 07:21 03/02/17 07:21 03/02/17 07:21 03/02/17 07:21 General appearance: Present: A&O X 2, pleasant, no acute distress, answers questions appropriately - Head Head exam: Present: atraumatic, normocephalic - Neck Neck exam general surgery: Present: supple, trachea midline - Respiratory Respiratory exam: Present: CTAB - Cardiovascular Cardiovascular exam: Present: RRR, +S1, +S2 - GI/Abdominal GI/Abdominal exam: Present: normal bowel sounds, soft. Absent: distended, tenderness - Extremities Exam Extremities exam: Absent: cyanotic, pedal edema - Neurological Exam Neurological exam: Present: alert, oriented X3 Additional comments: gait abnormality, patient has trouble with memory. decreased strength that is symmetrical. - Psychiatric Psychiatric exam: Present: normal affect, normal mood - Skin Skin exam: Present: intact Internal Medicine: Result - Labs CBC & Chem 7: 03/01/17 23:10 03/02/17 09:43 Labs: Short CBC 03/01/17 Range/Units 23:10 WBC 7.0 (4.3-11.1) K/mcL Hgb 10.7 L (11.5-15.4) g/dL Hct 32.3 L (35.3-44.9) % Plt Count 189 (140-400) K/mcL Neutrophils # 4.7 (1.6-8.9) K/mcL BMP 03/01/17 23:10 Sodium 137 Potassium 4.0 Chloride 104 Carbon Dioxide 25 BUN 34 H D Creatinine 1.49 H D Glucose 123 H Calcium 9.4 - ABG Interpretation ABG results: PT/INR, D-dimer PT 11.9 Seconds (9.4-12.1) 02/27/17 23:03 Consult Discharge Plan - Plan Additional Instructions: follow up with primary care doctor within one week of discharge take all medications as prescribed return to emergency department if patient has fevers, chills, chest pain, or shortness of breath. Referrals: Vania Kenny MD [Primary Care Provider] - 03/06/17 9:00 am ( ) Lisa Olea MD [Partnered Physician] - Prescriptions: Donepezil [Aricept] 5 mg PO HS #30 tab Quetiapine Fumarate [Seroquel] 12.5 mg PO HS #30 tab <Kevin Garcia T - Last Filed: 03/02/17 15:45> Date of Encounter: 03/02/17 - Constitutional Vitals: Temp Pulse Resp BP Pulse Ox 98.3 F 74 16 127/73 100 03/02/17 11:14 03/02/17 11:14 03/02/17 11:14 03/02/17 11:14 03/02/17 11:14 Internal Medicine: Result - Labs CBC & Chem 7: 03/01/17 23:10 03/02/17 09:43 Labs: Short CBC 03/01/17 Range/Units 23:10 WBC 7.0 (4.3-11.1) K/mcL Hgb 10.7 L (11.5-15.4) g/dL Hct 32.3 L (35.3-44.9) % Plt Count 189 (140-400) K/mcL Neutrophils # 4.7 (1.6-8.9) K/mcL BMP 03/01/17 03/02/17 23:10 09:43 Sodium 137 140 Potassium 4.0 4.7 H Chloride 104 109 Carbon Dioxide 25 23 BUN 34 H D 32 H Creatinine 1.49 H D 1.22 H Glucose 123 H 94 Calcium 9.4 9.5 Urine 03/02/17 Range/Units 15:16 Urine Color Yellow (Yellow) Urine Clarity Clear (Clear) Urine pH 6.0 (5.0-8.0) pH Units Ur Specific [place] 1.014 (1.010-1.025) Urine Protein Negative (Neg-Trace) mg/dL Urine Glucose (UA) Normal (Normal) mg/dL - ABG Interpretation ABG results: PT/INR, D-dimer PT 11.9 Seconds (9.4-12.1) 02/27/17 23:03 - Attending Attestation I examined this patient and my medical decision-making was reviewed with the Resident Physician on 03/02/17. I agree with the documented findings, disposition and treatment plan as described except to the extent set forth below. 87 F Seen and evaluated with family at bedside Hx of white coat HTN, Dementia Seen and evaluated at bedside No new complains She had episodes of Hypotension overnight, and her renal function today is slighlty worse Amlodipine has been discontinued and she received IVF gentle bolus X1 Physical exam; Pleasantly confused, not in distress, moves all extremities equally, alert and oriented X2. Chest is clear HS S1, S2 only, no m/g/r, abdomen is benign, no pedal edema Brain MRI no hydrocephalus, no infarct Acute encephalopathy secondary to progressing dementia with behavioural abnormalities-No more aggression or agitatio, continue aricept and seroquel ROSEY: IVF, repeat Chem a.m HTN-Posisbly secondary to agitation as blood pressure has been WNL and low on medications, monitor closely Fall precautions High risk for delirium Rest of details as in resident physician's documentation
[2017-03-02] MEDS: Famotidine 20 MG TABLET PO SCH (09:19)
[2017-03-02] MEDS: Aspirin 81 MG TAB.CHEW PO SCH (09:19)
[2017-03-02 10:10] LABS: Calcium 9.5 mg/dL (8.6-10.8); Potassium 4.7 mEq/L (3.5-4.5)
--- NOTE | 2017-03-02 15:26 | Carotid Imaging Report ---
Carotid Duplex Patient Name:Jina Olguin Order Number:[id number] Procedure Date:02/28/2017 Date:2Age:87 yrs Gender:Female Rt.BP:157 / 84 mmHgHeart Rate: Location:[facility] Room #: 23 Orchard Manager:Katie Hensley, JUAN Referring MD:Jas Hastings DO ore smelter:Vania Kenny MD Reading MD:Elmo Campos MD , FACS Primary Indications:CVA Impressions: Findings: Bilateral carotid systems essentially normal. Findings Carotid Duplex: Right: The right proximal common carotid artery has a PSV of 61 cm/s and a EDV of 10 cm/s. The right mid common carotid artery has a PSV of 57 cm/s and a EDV of 13 cm/s. The right distal common carotid artery has a PSV of 53 cm/s and a EDV of 13 cm/s. The right bifurcation has a PSV of 49 cm/s and a EDV of 11 cm/s. The right proximal internal carotid artery has a PSV of 34 cm/s and a EDV of 12 cm/s. The right mid internal carotid artery has a PSV of 44 cm/s and a EDV of 14 cm/s. The right distal internal carotid artery has a PSV of 60 cm/s and a EDV of 17 cm/s. The right eca has a PSV of 32 cm/s and a EDV of 9 cm/s. The right vertebral artery has a PSV of 63 cm/s and a EDV of 13 cm/s. There is antegrade spectral Doppler flow patterns. Left: The left proximal common carotid artery has a PSV of 47 cm/s and a EDV of 10 cm/s. The left mid common carotid artery has a PSV of 50 cm/s and a EDV of 8 cm/s. The left distal common carotid artery has a PSV of 54 cm/s and a EDV of 10 cm/s. The left bifurcation has a PSV of 38 cm/s and a EDV of 9 cm/s. The left proximal internal carotid artery has a PSV of 42 cm/s and a EDV of 13 cm/s. The left mid internal carotid artery has a PSV of 68 cm/s and a EDV of 16 cm/s. The left distal internal carotid artery has a PSV of 84 cm/s and a EDV of 26 cm/s. The left eca has a PSV of 94 cm/s and a EDV of 9 cm/s. The left vertebral artery has a PSV of 65 cm/s and a EDV of 12 cm/s. There is antegrade spectral Doppler flow patterns. Prior Study: No prior study available for comparison. Carotid Results Right PSV EDV Assessment Proximal CCA 61 10 Mid CCA 57 13 Distal CCA 53 13 Bifurcation 49 11 Proximal ICA 34 12 Mid ICA 44 14 Distal ICA 60 17 ECA 32 9 Vertebral Artery 63 13 Antegrade Flow Left PSV EDV Assessment Proximal CCA 47 10 Mid CCA 50 8 Distal CCA 54 10 Bifurcation 38 9 Proximal ICA 42 13 Mid ICA 68 16 Distal ICA 84 26 ECA 94 9 Vertebral Artery 65 12 Antegrade Flow Ratio's Right ICA/CCA Ratio: 1.05 ICA/CCA Values: 60/57 Left ICA/CCA Ratio: 1.70 ICA/CCA Values: 84/50 Updated by Elmo Campos MD, FACS on 03/02/2017 3:21:45 PM Elmo Campos MD electronically signed on 03/02/2017 3:22:07 PM with status of Final
[2017-03-02 15:33] LABS: Bilirubin,Urine Negative (Negative); Blood,Urine Negative (Negative); Clarity,Urine Clear (Clear); Color,Urine Yellow (Yellow); Glucose,Urine (UA) Normal (Normal); Ketones,Urine Negative (Negative); Leukocyte Esterase,Urine Trace (Negative); Nitrite,Urine Negative (Negative); Protein,Urine Negative (Neg-Trace); Specific Gravity,Urine 1.014 (1.010-1.025); Urobilinogen,Urine Normal (Normal)
[2017-03-02 15:36] LABS: Bacteria,Urine Moderate per hpf (None-Few); Hyaline Casts,Urine None Seen per lpf (None-Few); Squamous Epithelial Cell,Urine Many per lpf (None-Few)
[2017-03-02] MEDS ORDERED: *HR* Metoprolol 5 MG/5 ML VIAL IVP ONE (21:34)
[2017-03-02] MEDS: *HR* Metoprolol 5 MG/5 ML VIAL IVP PRN ×2 (21:35→22:04)
[2017-03-03 04:13] VITALS: BP 155/76
[2017-03-03] MEDS: *HR* Heparin 5,000 UNIT/ML VIAL SQ SCH (06:12)
[2017-03-03 06:31] LABS: Basophils % 0.3 %; Eosinophils # 0.3 K/mcL (0.0-0.6); Eosinophils % 4.8 %; Hematocrit 31.7 % (35.3-44.9); Hemoglobin 10.4 g/dL (11.5-15.4); Immature Granulocytes % 0.5 % (0-4); Lymphocytes # 1.5 K/mcL (0.6-4.6); Lymphocytes % 24.2 %; Mean Corpuscular HGB Conc 32.8 g/dL (31.6-35.5); Mean Corpuscular Hemoglobin 31.4 pg (28.0-33.3); Mean Corpuscular Volume 95.8 fL (83.0-100.0); Mean Platelet Volume 11.4 fL (9.4-12.4); Monocytes # 0.5 K/mcL (0.0-1.3); Monocytes % 8.2 %; Neutrophils # 3.8 K/mcL (1.6-8.9); Platelet Count 167 K/mcL (140-400); Red Blood Count 3.31 M/mcL (3.82-4.97); Red Cell Distribution Width 14.2 % (11.5-14.5)
[2017-03-03 06:50] LABS: Blood Urea Nitrogen 24 mg/dL (7-20); Carbon Dioxide 26 mEq/L (19-29); Chloride 107 mEq/L (98-109); Potassium 3.7 mEq/L (3.5-4.5); Sodium 139 mEq/L (136-145)
[2017-03-03 06:51] LABS: BUN/Creatinine Ratio 24 (6-26); Calcium 9.4 mg/dL (8.6-10.8); Glucose 92 mg/dL (70-99); Osmolality,Calculated 292 (280-300); eGFR For African Americans > 60 (> 60); eGFR For Non-African Americans 54 (> 60)
[2017-03-03] MEDS: Aspirin 81 MG TAB.CHEW PO SCH (09:11)
[2017-03-03] MEDS: Famotidine 20 MG TABLET PO SCH (09:11)
== END 2017-03-03 11:21 | disposition home or self-care (01) | DRG 70 ==
LOC: 2ANU 22:34 → EMEROO 22:34 → 2ANU 02-28 00:52
PROVIDERS: ADMIT Internal Medicine Hematology & Oncology; ATTEND Internal Medicine

== ENCOUNTER 2017-07-21 18:19 | Inpatient (IN) ==
[2017-07-22] MEDS ORDERED: Ondansetron ODT 4 MG TAB.RAPDIS SL PRN (02:08)
[2017-07-22] MEDS ORDERED: Naloxone 0.4 MG/ML INJ IVP PRN (02:08)
--- NOTE | 2017-07-22 02:45 | Internal Med History&Physical ---
Date of Encounter: 07/22/17 Time of Encounter: 02:00 Assessment and Plan (1) Altered mental status Current visit: Yes Status: Acute AMS with predominance in somnolence, daytime confusion. Patient non-conversant, family not present, default to Full Code. Per [facility] ED records prior to transfer to [facility], CT head shows no acute bleed/infarct, enlarged 3rd/lateral ventricles consistent with past Ct. Exam benign; pupils 2mm/reactive. Repeat ECG shows sinus rhythm Plan: NPO/maintenance fluids, morning BMP/CBC, 3rd troponin for AM (.03, .04 in [facility]). Consider evaluation with Neuro consult regarding CT head - enlarged ventricles, pt established with Dr. Olea for hydrocephalus/chronic dementia workup as of February 2017. Qualifiers: Altered mental status type: somnolence Qualified Code(s): R40.0 - Somnolence (2) DVT prophylaxis Current visit: No Status: Acute CT Head negative for bleed. SQ heparin 5000U q12h Internal Medicine - H&P: HPI Admitted From: Hospital to Hospital Transfer Plans for Post Hospital Care: Transfer Custodial Facility History of present illness: *History and recent workup obtained from chart/record review from [facility] ED documentation 07/22/17, as patient is nonconversant and family is not present. Ms. Olguin is a 87 year old female who was brought in by EMS to [facility] for 1 week of worsening confusion and weakness. Pt was found by confused on the toilet, unable to stand. ED workup showed initial ECG w/ NSR followed by ECG 3 hours later with precordial/II/III/avF ST depression, ST-elevation in aVR. Troponin .03, .04. CKMB elevated at 14. CT head and CXR negative for acute finding. CT head again shows white matter tract deterioration with enlarged 3rd and lateral ventricles. This is similar in findings to her admission in February 2017 for AMS, SVT, and neurology evaluation. Neurology at time ordered MRI, stated no surgical intervention at the time, with consideration for repeat CT 3 months from February with potential for LP. Currently patient is non-coversant, difficult to rouse, lying asleep, no acute distress from transfer through arrival to floor. Past Med Surg Social Fam HX - Past Medical History Medical history: dementia Psychiatric history: depression - Social History Smoking Status: Never smoker Alcohol use: none Drug use: none Internal Medicine - H&P: Meds Ergocalciferol (VITAMIN D2) [Vitamin D] 800 unit PO DAILY 02/28/17 [History] Multivit with Calcium,Iron,Min [One Daily Women's] 1 tab PO DAILY 02/28/17 [ History] Mv-Mn/FA/Vit K1/Lycop/Lut/Zeax [Ocuvite Eye + Multi Tablet] 1 tab PO DAILY 02/28 [History] Quetiapine Fumarate [Seroquel] 12.5 mg PO HS #30 tab 03/02/17 [Rx] 3 Allergy/AdvReac Type Severity Reaction Status Date / Time Donepezil [From Aricept] Allergy See Verified 07/22/17 01:04 Comments All Systems PM: A 10-system review of systems was performed and is negative for pertinent findings except as documented above in the HPI. - Constitutional Vitals: Temp Pulse Resp BP Pulse Ox 98.0 F 70 18 166/68 96 07/22/17 00:50 07/22/17 00:50 07/22/17 00:50 07/22/17 00:50 07/22/17 00:50 General appearance: Present: no acute distress Exam: non-conversant, difficult to rouse, no acute distress - Head Head exam: Present: atraumatic - Respiratory Respiratory exam: Present: CTAB - Cardiovascular Cardiovascular exam: Present: RRR, +S1, +S2 - Extremities Exam Extremities exam: Present: normal capillary refill, warm - Neurological Exam Neurological exam: Present: altered (somnolent, difficult to rouse) - Skin Skin exam: Present: normal color
[2017-07-22] MEDS ORDERED: 0.9 % Sodium Chloride 1,000 ML IVC SCH (03:45)
[2017-07-22] MEDS: *HR* Heparin 5,000 UNIT/ML VIAL SQ SCH ×2 (04:18→16:38)
[2017-07-22 05:05] LABS: BUN/Creatinine Ratio 29 (6-26); Blood Urea Nitrogen 26 mg/dL (8-23); Calcium 9.7 mg/dL (8.6-10.3); Carbon Dioxide 24 mEq/L (23-29); Chloride 106 mEq/L (98-107); Glucose 80 mg/dL (70-105); Magnesium 1.9 mg/dL (1.6-2.6); Osmolality,Calculated 294 (280-300); Phosphorous 3.9 mg/dL (2.7-4.5); Potassium 3.7 mEq/L (3.5-5.1); Sodium 140 mEq/L (136-145); eGFR For African Americans > 60 (> 60); eGFR For Non-African Americans 60 (> 60)
[2017-07-22 05:10] LABS: Basophils % 0.2 %; Eosinophils % 0.1 %; Hematocrit 30.4 % (35.3-44.9); Hemoglobin 9.9 g/dL (11.5-15.4); Immature Granulocytes % 0.4 % (0-4); Lymphocytes # 0.9 K/mcL (0.6-4.6); Lymphocytes % 10.6 %; Mean Corpuscular HGB Conc 32.6 g/dL (31.6-35.5); Mean Corpuscular Hemoglobin 30.6 pg (28.0-33.3); Mean Corpuscular Volume 93.8 fL (83.0-100.0); Mean Platelet Volume 11.6 fL (9.4-12.4); Monocytes # 0.6 K/mcL (0.0-1.3); Monocytes % 6.7 %; Platelet Count 196 K/mcL (140-400); Red Blood Count 3.24 M/mcL (3.82-4.97); Red Cell Distribution Width 13.8 % (11.5-14.5)
--- NOTE | 2017-07-22 10:13 | Cardiology Consult Note ---
<Jona Staples - Last Filed: 07/22/17 10:05> Date of Encounter: 07/22/17 Time of Encounter: 10:05 Assessment and Plan (1) SVT (supraventricular tachycardia) Current Visit: No Status: Resolved SVT resolved with 12 mg adenosine per reports. Noted to have ST depression during event. ST depression resolved after SVT resolved. H/o SVT. TTE 02/2017- Mild LV systolic dysfunction, LVEF 40-45%. There is mild global LV hypokinesis. Mild asymmetric LV basal septal hypertrophy. No evidence of LVOT obstruction. Mild left ventricular diastolic dysfunction. Normal right ventricular size and function. No evidence of intracardiac shunting with agitated saline contrast. Mild aortic regurgitation.Mild mitral regurgitation. No evidence of pulmonary hypertension. Looks like she was not seen by cardiology before. Add beta-jemima. Check limited TTE to re-assess LV function. (2) Elevated troponin Current Visit: Yes Status: Acute Mild troponin elevation up to .05 in the setting of SVT. Continue to monitor. Check limited TTE. (3) Cardiomyopathy Current Visit: Yes Status: Acute Patient seen to have cardiomyopathy in February. EF 40-45%. Currently euvolemic. Check limited TTE to re-assess. Start beta-jemima. Consider aceI prior to d/c. Qualifiers: Cardiomyopathy type: unspecified Qualified Code(s): I42.9 - Cardiomyopathy , unspecified Discussion w patient/family: The assessment and plan as outlined above was discussed with the patient and/or family members who expressed understanding and agreement. All questions were answered. Thank you for involving us in the care of your patient. Please call with any questions. History of Present Illness Consult date: 07/22/17 Requesting physician: Rene Waters Consult reason: SVT with EKG changes Chief complaint: AMS History of present illness: Ms. Olguin is a 87 year old female with a history of dementia and recently diagnosed SVT who presented from home with increased confusion and weakness. Her states that he took he to the bathroom when she woke him up from his sleep. He left her there and thought she was doing fine. When he woke up the next morning she was still in the bathroom sitting on the toilet and unable to get up. he called for EMS and she was transferred to [facility]. Dueing her ER visit she developed SVT, HR 163. She was given 12 mg adenosine with conversion to NSR. Cardiology consulted for ST depression seen during SVT and mild troponin. Daughter reports similar episode of confusion earlier this year. She was diagnosed with SVT during that hospital stay. Past Med Surg Social Fam HX - Past Medical History Medical history: dementia Psychiatric history: depression - Social History Smoking Status: Never smoker Alcohol use: none Drug use: none Medications and Allergies Ergocalciferol (VITAMIN D2) [Vitamin D] 800 unit PO DAILY 02/28/17 [History] Multivit with Calcium,Iron,Min [One Daily Women's] 1 tab PO DAILY 02/28/17 [ History] Mv-Mn/FA/Vit K1/Lycop/Lut/Zeax [Ocuvite Eye + Multi Tablet] 1 tab PO DAILY 02/28 [History] Quetiapine Fumarate [Seroquel] 25 mg PO HS 07/22/17 [History] 3 Allergy/AdvReac Type Severity Reaction Status Date / Time Donepezil [From Aricept] Allergy See Verified 07/22/17 01:04 Comments All Systems Review: A 10-system review of systems was performed and is negative for pertinent findings except as documented above in the HPI. Physical Examination Vital Signs, Last 4 Hours Temp Pulse Resp BP Pulse Ox 07/22/17 07:12 98.6 F 79 16 156/71 96 Results 07/22/17 04:35 07/22/17 04:35 Lab Results 07/22/17 07/22/17 07/22/17 04:35 04:35 04:35 WBC 8.6 Hgb 9.9 L Hct 30.4 L Plt Count 196 Sodium 140 Potassium 3.7 Chloride 106 Carbon Dioxide 24 BUN 26 H Creatinine 0.90 Glucose 80 Calcium 9.7 Magnesium 1.9 Troponin I 0.05 H* Consult Discharge Plan - Plan Referrals: Vania Kenny MD [Primary Care Provider] - <Jason Kelly - Last Filed: 07/23/17 07:48> Date of Encounter: 07/23/17 Time of Encounter: 21:05 - Attending Attestation I have personally performed a face to face evaluation on this patient. I have reviewed and agree with the care plan. History and Exam by me shows: PT has severe dementia, is not a reliable historian, hx from medical record 1. SVT: Pt presents with increased confusion, developed SVT in ER, with heart rates in 150s to 170s, converted to NSR with 12 mg adenosine, now in NSR. Transient ST segment depression on EKG at rapid heart rates resolved with converstion to NSR. Pt unable to relate hx chest pain, pressure or shortness of breath. She is maintaining NSR, started on Metoprolol Succinate 25mg q D, will follow heart rate and blood pressure response. 2. Elevated troponin of unclear significance, will follow, does not have ischemic EKG changes back in NSR, suspect due to demand ischemia with SVT, does not appear to be a candidate for invasive strategy, continue medical tx. with ASA and metoprolol. 3. Dementia; unchanged, appears at baseline. 4. Cardiomyopathy, EF 45% 02/2017, will repeat TTE, eval for new wall motion abnormalities. Assessment and Plan Discussion w patient/family: The assessment and plan as outlined above was discussed with the patient and/or family members who expressed understanding and agreement. All questions were answered. Thank you for involving us in the care of your patient. Please call with any questions. History of Present Illness History of present illness: Ms. Olguin is a 87 year old female All Systems Review: A 10-system review of systems was performed and is negative for pertinent findings except as documented above in the HPI. Physical Examination Vital Signs, Last 4 Hours Temp Pulse Resp BP Pulse Ox 07/23/17 03:48 98.3 F 70 14 167/62 96 Results 07/23/17 03:17 07/23/17 03:17 Lab Results 07/22/17 07/23/17 07/23/17 04:35 03:17 03:17 WBC 8.1 Hgb 10.2 L Hct 30.7 L Plt Count 194 Sodium 140 137 Potassium 3.7 3.5 Chloride 106 104 Carbon Dioxide 24 27 BUN 26 H 21 Creatinine 0.90 0.93 Glucose 80 118 H Calcium 9.7 9.4 Magnesium 1.9 TSH 1.205
[2017-07-22] MEDS ORDERED: Metoprolol XL (24 HR) Succ 25 MG TAB.ER.24H PO SCH (10:30)
[2017-07-22 11:36] LABS: Thyroid Stimulating Hormone 1.205 mcIU/mL (0.340-5.600)
[2017-07-22] MEDS: Cholecalciferol (D-3) 1,000 UNIT TABLET PO SCH (14:01)
[2017-07-22] MEDS: 0.9 % Sodium Chloride 1,000 ML IVC SCH (14:02)
[2017-07-22] MEDS: *HR* Metoprolol 5 MG/5 ML VIAL IVP SCH ×2 (14:09→16:38)
[2017-07-22 14:59] LABS: Bilirubin,Urine Negative (Negative); Blood,Urine Negative (Negative); Clarity,Urine Clear (Clear); Color,Urine Yellow (Yellow); Glucose,Urine (UA) Normal (Normal); Ketones,Urine 40 mg/dL (Negative); Leukocyte Esterase,Urine Negative (Negative); Nitrite,Urine Negative (Negative); PH,Urine 6.5 pH Units (5.0-8.0); Protein,Urine Negative (Neg-Trace); Specific Gravity,Urine 1.022 (1.010-1.025); Urobilinogen,Urine Normal (Normal)
[2017-07-22] MEDS ORDERED: *HR* Dextrose 50 % in Water (Syg) 50 ML SYRINGE IVP PRN (16:26)
[2017-07-22] MEDS ORDERED: Dextrose Gel 15 GM/37.5 ML TUBE PO PRN ×2 (16:26)
--- NOTE | 2017-07-22 16:33 | Neurology - Consult Note ---
Date of Encounter: 07/22/17 Time of Encounter: 16:30 Assessment and Plan (1) Dementia with behavioral disturbance Current Visit: No Status: Acute This patient who had a significant decline in the past several months admitted with generalized weakness fatigue and hallucinations Suggest to check for any underlying infection particularly UTI to make sure that is not the reason for her symptoms As far as her dementia is concerned she does seem to have a rapid decline in the last few months on her MRI of the brain and is no acute finding but she did have a significant white matter changes along with dilated ventricles with a concern of normal pressure hydrocephalus Certainty that need to be excluded patient could have a quick decline but it could been vascular dementia versus NPH when she is more stable suggest getting and a spinal tap and evaluate her gait and balance to see if there is an improvement as family has noted she did have some parkinsonian symptoms as well In the meantime continue to treat underlying infection or metabolic disturbance She would benefit from physical therapy and rehabilitation as well Also make sure that patient is awake during the daytime to ovoid any sundowning and difficulty sleep at nighttime if she started having hallucination perhaps repeat could be on low-dose of Seroquel 25 mg at bedtime Qualifiers: Dementia type: Alzheimer's disease Alzheimer's disease onset: unspecified onset Qualified Code(s): G30.9 - Alzheimer's disease, unspecified; F02.81 - Dementia in other diseases classified elsewhere with behavioral disturbance; F02.81 - Dementia in other diseases classified elsewhere with behavioral disturbance; F02.81 - Dementia in other diseases classified elsewhere with behavioral disturbance (2) Dilated ventricle Current Visit: Yes Status: Acute (3) Encephalopathy Current Visit: No Status: Acute History of Present Illness HPI: Ms. Olguin is a 87 year old female jermaine Olguin is a 87 year old female who was brought in by EMS to [facility] for 1 week of worsening confusion and weakness. Pt was found by confused on the toilet, unable to stand. ED workup showed initial ECG w/ NSR followed by ECG 3 hours later with precordial/II/III/avF ST depression, ST-elevation in aVR. Troponin .03, .04. CKMB elevated at 14. CT head and CXR negative for acute finding. CT head again shows white matter tract deterioration with enlarged 3rd and lateral ventricles. This is similar in findings to her admission in February 2017 for AMS, SVT, and neurology evaluation. Neurology at time ordered MRI, stated no surgical intervention at the time, with consideration for repeat CT 3 months from February with potential for LP. Currently patient is non-coversant, difficult to rouse, lying asleep, no acute distress from transfer through arrival to floor. Past Med Surg Social Fam HX - Past Medical History Medical history: dementia Psychiatric history: depression - Social History Smoking Status: Never smoker Alcohol use: none Drug use: none Medications and Allergies Ergocalciferol (VITAMIN D2) [Vitamin D] 800 unit PO DAILY 02/28/17 [History] Multivit with Calcium,Iron,Min [One Daily Women's] 1 tab PO DAILY 02/28/17 [ History] Mv-Mn/FA/Vit K1/Lycop/Lut/Zeax [Ocuvite Eye + Multi Tablet] 1 tab PO DAILY 02/28 [History] Quetiapine Fumarate [Seroquel] 25 mg PO HS 07/22/17 [History] 3 Allergy/AdvReac Type Severity Reaction Status Date / Time Donepezil [From Aricept] Allergy See Verified 07/22/17 01:04 Comments All Systems: A 10-system review of systems was performed and is negative for pertinent findings except as documented above in the HPI. Physical Examination - Vital Signs Vital Signs: Initial Vital Signs Temp Pulse Resp BP Pulse Ox 98.0 F 70 18 166/68 96 07/22/17 00:50 07/22/17 00:50 07/22/17 00:50 07/22/17 00:50 07/22/17 00:50 - Constitutional General appearance: comfortable - Neurologic Sensorimotor examination: intact Detailed motor examination: grossly full strength in all extremities Motor examination - right side: 4/5: deltoids, biceps, triceps, wrist flexion, wrist extension, marine engineering technicians, hip flexors, tibialis Anterior, quadriceps, toe extension (EHL), plantarflexion Motor examination - left side: 4/5: deltoids, biceps, triceps, wrist flexion, wrist extension, hip flexors, marine engineering technicians, quadriceps, tibialis Anterior, toe extension (EHL), plantarflexion Detailed sensory examination: intact Reflexes: Biceps: 1+, Triceps: 1+, Brachioradialis: 1+, Patella: 1+, Achilles: 1 + Mental Status Examination: awake, alert, oriented to person, opens eyes to noxious stimulation, follows simple commands, localizes noxious stimulation Cranial nerve examination: PERRL, EOMI, visual la intact, no facial asymmetry is present, no dysarthria Cerebellar examination: no dysmetria Results - Laboratory Findings CBC and BMP: 07/26/17 03:54 07/26/17 03:54 Abnormal lab findings: Abnormal lab results RBC 3.24 M/mcL (3.82-4.97) L 07/22/17 04:35 Hgb 9.9 g/dL (11.5-15.4) L 07/22/17 04:35 Hct 30.4 % (35.3-44.9) L 07/22/17 04:35 BUN 26 mg/dL (8-23) H 07/22/17 04:35 BUN/Creatinine Ratio 29 (6-26) H 07/22/17 04:35 Troponin I 0.05 ng/mL (< 0.04) H* 07/22/17 04:35 Urine Ketones 40 mg/dL (Negative) H 07/22/17 14:37 Consult Discharge Plan - Plan Referrals: Vania Kenny MD [Primary Care Provider] -
--- NOTE | 2017-07-22 16:35 | Event Note ---
Date of Encounter: 07/22/17 Time of Encounter: 16:22 Seen and examined at bedside. Patient is new to me, information obtained from chart review and patient report. Alert to self only, will open eyes when name called. Overall drowsy and lethargic. Discussed with Dr. Adamson who suspects normal pressure hydrocephalus. Continue to monitor overnight, may need LP tomorrow 1. 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 Was seen 02/2017 for similar sx's; thought to be secondary to advance dementia at that time. Now with similar presentation; confusion and lethargy. Outside hospital head CT with enlarged third, lateral ventricle consistent with past head CT, concerning for hydrocephalus. Continue monitoring overnight. Continue Seroquel as previously prescribed. UA pending. Neurology following 2. SVT: has known hx of SVT. Had an episode SVT at OSH; resolved with 12 mg adenosine per reports. Noted to have ST depression during event. ST depression resolved after SVT resolved. BB added per Cardiology; will change to metoprolol IV every 6 hours as she is unable to take PO at this time (change to PO when mentation improved). TTE to re-assess LV function pending 3. Elevated troponin: troponin peaked at 0.05. Evaluated by cardiology who suspects secondary to SVT. Echo pending. Continue to monitor on telemetry.
[2017-07-22] MEDS: D5% in Water 1,000 ML IVC PRN (16:37)
[2017-07-23] MEDS: *HR* Metoprolol 5 MG/5 ML VIAL IVP SCH ×4 (01:22→17:15)
[2017-07-23 03:42] LABS: Hematocrit 30.7 % (35.3-44.9); Hemoglobin 10.2 g/dL (11.5-15.4); Mean Corpuscular HGB Conc 33.2 g/dL (31.6-35.5); Mean Corpuscular Hemoglobin 30.8 pg (28.0-33.3); Mean Corpuscular Volume 92.7 fL (83.0-100.0); Mean Platelet Volume 11.4 fL (9.4-12.4); Platelet Count 194 K/mcL (140-400); Red Blood Count 3.31 M/mcL (3.82-4.97); Red Cell Distribution Width 13.6 % (11.5-14.5)
[2017-07-23 03:44] LABS: Hemoglobin A1C 5.1 %
[2017-07-23 03:56] LABS: BUN/Creatinine Ratio 23 (6-26); Blood Urea Nitrogen 21 mg/dL (8-23); Calcium 9.4 mg/dL (8.6-10.3); Carbon Dioxide 27 mEq/L (23-29); Chloride 104 mEq/L (98-107); Glucose 118 mg/dL (70-105); Osmolality,Calculated 288 (280-300); Potassium 3.5 mEq/L (3.5-5.1); Sodium 137 mEq/L (136-145); eGFR For African Americans > 60 (> 60); eGFR For Non-African Americans 57 (> 60)
[2017-07-23] MEDS: *HR* Heparin 5,000 UNIT/ML VIAL SQ SCH ×2 (05:49→17:15)
[2017-07-23] MEDS: D5% in Water 1,000 ML IVC PRN (05:49)
[2017-07-23] MEDS: Cholecalciferol (D-3) 1,000 UNIT TABLET PO SCH (10:34)
--- NOTE | 2017-07-23 11:03 | Cardiology Progress Note ---
Date of Encounter: 07/23/17 Time of Encounter: 09:30 Assessment and Plan (1) SVT (supraventricular tachycardia) Current Visit: No Status: Resolved SVT in ED resolved with 12 mg adenosine per reports. Noted to have ST depression on EKG during event. ST depression resolved after SVT resolved. H/o SVT. TTE 02/2017- Mild LV systolic dysfunction, LVEF 40-45%. There is mild global LV hypokinesis. Mild asymmetric LV basal septal hypertrophy. No evidence of LVOT obstruction. Mild left ventricular diastolic dysfunction. Normal right ventricular size and function. No evidence of intracardiac shunting with agitated saline contrast. Mild aortic regurgitation.Mild mitral regurgitation. No evidence of pulmonary hypertension. Looks like she was not evaluated by cardiology before. Add beta-jemima. Change to oral once taking oral medication if patient tolerating. Check limited TTE to re-assess LV function. (2) Elevated troponin Current Visit: Yes Status: Acute Mild troponin elevation up to .05 in the setting of SVT. Continue to monitor. Check limited TTE. (3) Cardiomyopathy Current Visit: Yes Status: Acute Patient seen to have cardiomyopathy in February. EF 40-45%. Currently euvolemic. Check limited TTE to re-assess. Start beta-jemima IV and oral when able. Parameters on IV metoprolol. HR in the 50's at times noted. Consider aceI prior to d/c if indicated. Currently not a good candidate for ischemic evaluation due to declined neurological status and inability to take medications. She is also asymptomatic from cardiac standpoint. Discussed with family who voiced understanding. Qualifiers: Cardiomyopathy type: unspecified Qualified Code(s): I42.9 - Cardiomyopathy , unspecified Discussion w patient/family: The assessment and plan as outlined above was discussed with the patient and/or family members who expressed understanding and agreement. All questions were answered. Thank you for involving us in the care of your patient. Please call with any questions. Subjective Principal diagnosis: SVT, AMS Interval history: Ms. Olguin is more alert. Still having difficulty following commands. Oriented to name only. Objective Vital Signs, Last 4 Hours Temp Pulse Resp BP Pulse Ox 07/23/17 09:55 97.7 F 54 16 171/77 96 07/23/17 07:51 99.0 F 59 16 151/66 97 General: Conversant, No Apparent Distress, Other (Confused) HEENT: Atraumatic, Normocephaly, Mucus Membranes Moist Neck: No JVD, Normal carotid pulses Cardiac: Reg Rate and Rhythm, Normal S1 and S2, No Murmur Lungs: Normal Breath Sounds, No Wheeze, Rales, Rhonchi Neuro: Alert and responsive, Other (Unable to follow commands. Generalized weakness. ) Abdomen: Soft, Non-Tender Skin: No rashes noted on visualized skin Musculoskeletal: No Chest Wall Tenderness Extremities: No Clubbing, No Cyanosis, No Edema, Normal Pulses Results 07/23/17 03:17 07/23/17 03:17 Lab Results 07/22/17 07/23/17 07/23/17 04:35 03:17 03:17 WBC 8.1 Hgb 10.2 L Hct 30.7 L Plt Count 194 Sodium 140 137 Potassium 3.7 3.5 Chloride 106 104 Carbon Dioxide 24 27 BUN 26 H 21 Creatinine 0.90 0.93 Glucose 80 118 H Calcium 9.7 9.4 Magnesium 1.9 TSH 1.205 - Imaging and Cardiology Echo: pending - EKG Interpretation EKG results cardiology: personally reviewed Consult Discharge Plan - Plan Referrals: Vania Kenny MD [Primary Care Provider] -
[2017-07-23] MEDS: 0.9 % Sodium Chloride 1,000 ML IVC SCH (14:21)
--- NOTE | 2017-07-23 15:31 | Internal Med Progress Note ---
Date of Encounter: 07/23/17 Time of Encounter: 14:44 - Assessment and plan (1) Acute encephalopathy Current Visit: Yes Status: Acute Assessment and plan: presented with lethargy and drowsiness. Was seen 02/2017 for similar sx's; thought to be secondary to advance dementia at that time. UA not indicative of UTI. Outside hospital head CT with enlarged third, lateral ventricle consistent with past head CT, concerning for hydrocephalus. Mentation appears to wax and wane; more alert and awake on 07/23. Continue supportive care at this time. Neurology following. Await further recommendations (2) Dementia with behavioral disturbance Current Visit: No Status: Acute Assessment and plan: per hx. Current change in mental status could be secondary to dementia. Has been on Namenda and Aricept in the past. Supportive care for now Qualifiers: Dementia type: Alzheimer's disease Alzheimer's disease onset: late-onset Qualified Code(s): G30.1 - Alzheimer's disease with late onset; F02.81 - Dementia in other diseases classified elsewhere with behavioral disturbance (3) Elevated troponin Current Visit: Yes Status: Acute Assessment and plan: troponin peaked at 0.05. Evaluated by cardiology who suspects secondary to SVT. Echo pending. Continue to monitor on telemetry. (4) SVT (supraventricular tachycardia) Current Visit: No Status: Resolved Assessment and plan: has known hx of SVT. Had an episode SVT at OSH; resolved with 12 mg adenosine per reports. Noted to have ST depression during event. ST depression resolved after SVT resolved. BB added per Cardiology; will change to metoprolol IV every 6 hours as she is unable to take PO at this time (change to PO when mentation improved). TTE to re-assess LV function pending (5) DVT prophylaxis Current Visit: No Status: Acute - Subjective Interval history: Seen and given a bedside. Patient is more awake and alert. Still alert to self only but she is conversing and following commands. No family at bedside. She has no complaints at this time - Constitutional Vitals: Temp Pulse Resp BP Pulse Ox 97.7 F 54 16 171/77 96 07/23/17 09:55 07/23/17 09:55 07/23/17 09:55 07/23/17 09:55 07/23/17 09:55 General appearance: Present: A&O X 1, no acute distress - Head Head exam: Present: atraumatic, normocephalic - Eye Eye exam: Present: PERRL, conjuntiva pink, sclera anicteric Pupils: Present: PERRL - Neck Neck exam general surgery: Present: supple, trachea midline. Absent: lymphadenopathy - Respiratory Respiratory exam: Present: CTAB. Absent: accessory muscle use, rales, rhonchi, wheezes - Cardiovascular Cardiovascular exam: Present: RRR, +S1, +S2. Absent: diastolic murmur, gallop, rubs, systolic murmur - GI/Abdominal GI/Abdominal exam: Present: normal bowel sounds, soft, no peritoneal signs. Absent: distended, tenderness - Extremities Exam Extremities exam: Present: warm, radial pulses palpable and symmetrical. Absent : calf tenderness, cyanotic, pedal edema - Neurological Exam Neurological exam: Present: CN II-XII intact, oriented X3, no focal deficits. Absent: pronater drift, facial droop, speech deficit - Skin Skin exam: Present: dry, intact Internal Medicine: Result - Labs CBC & Chem 7: 07/23/17 03:17 07/23/17 03:17 Labs: Short CBC 07/23/17 Range/Units 03:17 WBC 8.1 (4.3-11.1) K/mcL Hgb 10.2 L (11.5-15.4) g/dL Hct 30.7 L (35.3-44.9) % Plt Count 194 (140-400) K/mcL BMP 07/23/17 03:17 Sodium 137 Potassium 3.5 Chloride 104 Carbon Dioxide 27 BUN 21 Creatinine 0.93 Glucose 118 H Calcium 9.4 Urine 07/22/17 Range/Units 14:37 Urine Color Yellow (Yellow) Urine Clarity Clear (Clear) Urine pH 6.5 (5.0-8.0) pH Units Ur Specific [place] 1.022 (1.010-1.025) Urine Protein Negative (Neg-Trace) mg/dL Urine Glucose (UA) Normal (Normal) mg/dL Consult Discharge Plan - Plan Referrals: Vania Kenny MD [Primary Care Provider] -
--- NOTE | 2017-07-23 17:44 | Neurology Progress Note ---
Date of Encounter: 07/26/17 Time of Encounter: 15:44 Assessment and Plan (1) Dementia with behavioral disturbance Current Visit: No Status: Acute This patient who had a significant decline in the past several months admitted with generalized weakness fatigue and hallucinations Suggest to check for any underlying infection particularly UTI to make sure that is not the reason for her symptoms As far as her dementia is concerned she does seem to have a rapid decline in the last few months on her MRI of the brain and is no acute finding but she did have a significant white matter changes along with dilated ventricles with a concern of normal pressure hydrocephalus Certainty that need to be excluded patient could have a quick decline but it could been vascular dementia versus NPH when she is more stable suggest getting and a spinal tap and evaluate her gait and balance to see if there is an improvement as family has noted she did have some parkinsonian symptoms as well In the meantime continue to treat underlying infection or metabolic disturbance She would benefit from physical therapy and rehabilitation as well Also make sure that patient is awake during the daytime to ovoid any sundowning and difficulty sleep at nighttime if she started having hallucination perhaps repeat could be on low-dose of Seroquel 25 mg at bedtime Qualifiers: Dementia type: Alzheimer's disease Alzheimer's disease onset: unspecified onset Qualified Code(s): G30.9 - Alzheimer's disease, unspecified; F02.81 - Dementia in other diseases classified elsewhere with behavioral disturbance; F02.81 - Dementia in other diseases classified elsewhere with behavioral disturbance; F02.81 - Dementia in other diseases classified elsewhere with behavioral disturbance (2) Dilated ventricle Current Visit: Yes Status: Acute Getting repeat imaging studies , as she had mRI in February that did not show any significant dilated ventricles but outside she did was concern DILATED ventricles. sHe did have mental status changes but symptoms are not quite typical of NPH (3) Encephalopathy Current Visit: No Status: Acute Subjective Principal diagnosis: SVT, AMS Interval history: Significant change overall remained stable fluctuating mental status changes getting workup for possible UTI Objective - Constitutional Vitals: Temp Pulse Resp BP Pulse Ox 98.6 F 72 16 180/73 96 07/23/17 16:44 07/23/17 16:44 07/23/17 16:44 07/23/17 16:44 07/23/17 16:44 - Neurological Exam Sensorimotor examination: Present: intact Motor Examination: Present: grossly full strength in all extremities Sensation intact: Present: intact Mental Status Examination: Present: awake, alert, oriented to person, follows simple commands, localizes noxious stimulation Cranial nerve examination: Present: PERRL, EOMI, visual la intact Results - Laboratory Findings CBC and BMP: 07/26/17 03:54 07/26/17 03:54 Abnormal lab findings: Abnormal lab results RBC 3.31 M/mcL (3.82-4.97) L 07/23/17 03:17 Hgb 10.2 g/dL (11.5-15.4) L 07/23/17 03:17 Hct 30.7 % (35.3-44.9) L 07/23/17 03:17 Est GFR (Non-Af Amer) 57 (> 60) L 07/23/17 03:17 Glucose 118 mg/dL (70-105) H 07/23/17 03:17 POC Glucose 132 (58-89) H 07/23/17 03:53 Troponin I 0.05 ng/mL (< 0.04) H* 07/22/17 04:35 Folate 28.0 ng/mL (3.0-16.0) H 07/22/17 17:14 Urine Ketones 40 mg/dL (Negative) H 07/22/17 14:37 Consult Discharge Plan - Plan Referrals: Vania Kenny MD [Primary Care Provider] -
[2017-07-24] MEDS: *HR* Metoprolol 5 MG/5 ML VIAL IVP SCH ×4 (00:29→18:21)
[2017-07-24] MEDS: *HR* Heparin 5,000 UNIT/ML VIAL SQ SCH ×2 (05:27→18:21)
[2017-07-24 06:09] LABS: Hematocrit 31.2 % (35.3-44.9); Hemoglobin 10.2 g/dL (11.5-15.4); Mean Corpuscular HGB Conc 32.7 g/dL (31.6-35.5); Mean Corpuscular Hemoglobin 30.5 pg (28.0-33.3); Mean Corpuscular Volume 93.4 fL (83.0-100.0); Mean Platelet Volume 11.8 fL (9.4-12.4); Platelet Count 188 K/mcL (140-400); Red Blood Count 3.34 M/mcL (3.82-4.97); Red Cell Distribution Width 13.3 % (11.5-14.5)
[2017-07-24 06:21] LABS: BUN/Creatinine Ratio 20 (6-26); Blood Urea Nitrogen 18 mg/dL (8-23); Calcium 9.2 mg/dL (8.6-10.3); Carbon Dioxide 29 mEq/L (23-29); Chloride 105 mEq/L (98-107); Glucose 92 mg/dL (70-105); Osmolality,Calculated 290 (280-300); Potassium 3.3 mEq/L (3.5-5.1); Sodium 139 mEq/L (136-145); eGFR For African Americans > 60 (> 60); eGFR For Non-African Americans 58 (> 60)
[2017-07-24] MEDS: Cholecalciferol (D-3) 1,000 UNIT TABLET PO SCH (07:52)
[2017-07-24] MEDS: 0.9 % Sodium Chloride 1,000 ML IVC SCH (10:28)
--- NOTE | 2017-07-24 12:20 | Cardiology Progress Note ---
Date of Encounter: 07/24/17 Time of Encounter: 12:15 Assessment and Plan (1) SVT (supraventricular tachycardia) Current Visit: Yes Status: Resolved SVT in ED resolved with 12 mg adenosine per reports. Noted to have ST depression on EKG during event. ST depression resolved after SVT resolved. H/o SVT. TTE 02/2017- Mild LV systolic dysfunction, LVEF 40-45%. There is mild global LV hypokinesis. Mild asymmetric LV basal septal hypertrophy. No evidence of LVOT obstruction. Mild left ventricular diastolic dysfunction. Normal right ventricular size and function. No evidence of intracardiac shunting with agitated saline contrast. Mild aortic regurgitation.Mild mitral regurgitation. No evidence of pulmonary hypertension. No prior Cardiology evaluation. TTE resulted and demonstrated preserved LVEF, 60%--improved. Continue beta-jemima. Change to oral once taking oral medication if patient tolerating. No further inpatient recommendations, Cardiology will sign off. (2) Cardiomyopathy Current Visit: Yes Status: Acute Patient seen to have cardiomyopathy in February. EF 40-45%. Currently euvolemic. TTE demonstrated preserved LVEF, 60%--improved compared to previous. IV betablocker started yesterday, convert to po if able to take. Consider aceI prior to d/c if indicated. Currently not a good candidate for ischemic evaluation due to declined neurological status and inability to take medications. She is also asymptomatic from cardiac standpoint. Discussed with family who voiced understanding. No further testing recommended. Cardiology will sign-off. Qualifiers: Cardiomyopathy type: unspecified Qualified Code(s): I42.9 - Cardiomyopathy , unspecified (3) Elevated troponin Current Visit: Yes Status: Acute Mild troponin elevation up to .05 in the setting of SVT. Plan as above--conservative medical therapy. TTE shows preserved LVEF. Discussion w patient/family: The assessment and plan as outlined above was discussed with the patient and/or family members who expressed understanding and agreement. All questions were answered. Thank you for involving us in the care of your patient. Please call with any questions. The patient will be discussed and reviewed with Dr. Carter; Cardiology will sign- off. Please call with questions. Subjective Principal diagnosis: SVT, AMS Interval history: Seen and examined. Pleasantly confused. at bedside. No reported events overnight. Objective Vital Signs, Last 4 Hours Temp Pulse Resp BP Pulse Ox 07/24/17 10:50 98.5 F 69 16 129/73 96 General: Other (Confused, pleasantly. Unable to hold conversation. ) HEENT: Atraumatic, Normocephaly Cardiac: Reg Rate and Rhythm, Normal S1 and S2 Lungs: Normal Breath Sounds Neuro: Alert and responsive Abdomen: Soft Skin: No rashes noted on visualized skin Extremities: No Edema, Normal Pulses Results 07/24/17 04:58 07/24/17 04:58 Lab Results 07/24/17 07/24/17 04:58 04:58 WBC 7.9 Hgb 10.2 L Hct 31.2 L Plt Count 188 Sodium 139 Potassium 3.3 L Chloride 105 Carbon Dioxide 29 BUN 18 Creatinine 0.92 Glucose 92 Calcium 9.2 - Imaging and Cardiology Echo: report reviewed Other Results: 12 hour tele: avg HR=60 SR. No pause, no event noted. - EKG Interpretation EKG results cardiology: personally reviewed Consult Discharge Plan - Plan Referrals: Vania Kenny MD [Primary Care Provider] -
--- NOTE | 2017-07-24 14:27 | Internal Med Progress Note ---
Date of Encounter: 07/24/17 Time of Encounter: 14:25 - Assessment and plan (1) Acute encephalopathy Current Visit: Yes Status: Acute Assessment and plan: presented with lethargy and drowsiness. Was seen 02/2017 for similar sx's; thought to be secondary to advance dementia at that time. UA not indicative of UTI. Outside hospital head CT with enlarged third, lateral ventricle consistent with past head CT, concerning for hydrocephalus. Mentation appears to wax and wane; significantly improved on 07/24. Continue supportive care at this time. Neurology following. Await further recommendations (2) Dementia with behavioral disturbance Current Visit: No Status: Acute Assessment and plan: per hx. Current change in mental status could be secondary to dementia. Has been on Namenda and Aricept in the past. Supportive care for now Qualifiers: Dementia type: Alzheimer's disease Alzheimer's disease onset: late-onset Qualified Code(s): G30.1 - Alzheimer's disease with late onset; F02.81 - Dementia in other diseases classified elsewhere with behavioral disturbance (3) Elevated troponin Current Visit: Yes Status: Acute Assessment and plan: troponin peaked at 0.05. Evaluated by cardiology who suspects secondary to SVT. TTE with preserved EF. Continue to monitor on telemetry. No further workup at this time. (4) SVT (supraventricular tachycardia) Current Visit: Yes Status: Resolved Assessment and plan: has known hx of SVT. Had an episode SVT at OSH; resolved with 12 mg adenosine per reports. She was found to have ST depression during event which resolved after treating SVT. 07/23/2017 TTE with EF 60% (improved from previous). BB added per Cardiology. Continue to monitor on telemetry, optimize electrolytes (5) Urinary retention Current Visit: Yes Status: Acute Assessment and plan: Bladder scan on 07/23/17 with over 700 mL retention. Carpenter placed at that time. Remove Carpenter catheter 07/24/17 for voiding trial. If she retains again, replace Carpenter catheter and consult urology. (6) DVT prophylaxis Current Visit: No Status: Acute Assessment and plan: heparin - Subjective Interval history: Seen and examined at bedside; she is more alert and awake. Able to tell me her name and follow commands. Sitting up in bed eating lunch. at bedside and says she still not back to baseline. Patient does tell me she would like to go home. - Constitutional Vitals: Temp Pulse Resp BP Pulse Ox 98.5 F 69 16 129/73 96 07/24/17 10:50 07/24/17 10:50 07/24/17 10:50 07/24/17 10:50 07/24/17 10:50 General appearance: Present: A&O X 2, no acute distress - Head Head exam: Present: atraumatic, normocephalic - Eye Eye exam: Present: PERRL, conjuntiva pink, sclera anicteric Pupils: Present: PERRL - Neck Neck exam general surgery: Present: supple, trachea midline. Absent: lymphadenopathy - Respiratory Respiratory exam: Present: CTAB. Absent: accessory muscle use, rales, rhonchi, wheezes - Cardiovascular Cardiovascular exam: Present: RRR, +S1, +S2. Absent: diastolic murmur, gallop, rubs, systolic murmur - GI/Abdominal GI/Abdominal exam: Present: normal bowel sounds, soft, no peritoneal signs. Absent: distended, tenderness - Extremities Exam Extremities exam: Present: warm, radial pulses palpable and symmetrical. Absent : calf tenderness, cyanotic, pedal edema - Neurological Exam Neurological exam: Present: CN II-XII intact, oriented X3, no focal deficits. Absent: pronater drift, facial droop, speech deficit - Skin Skin exam: Present: dry, intact Internal Medicine: Result - Labs CBC & Chem 7: 07/24/17 04:58 07/24/17 04:58 Labs: Short CBC 07/24/17 Range/Units 04:58 WBC 7.9 (4.3-11.1) K/mcL Hgb 10.2 L (11.5-15.4) g/dL Hct 31.2 L (35.3-44.9) % Plt Count 188 (140-400) K/mcL BMP 07/24/17 04:58 Sodium 139 Potassium 3.3 L Chloride 105 Carbon Dioxide 29 BUN 18 Creatinine 0.92 Glucose 92 Calcium 9.2 - Impressions Impressions Echocardiogram Limited Views 07/22/17 10:27 Impressions: Technically sub-optimal due to body habitus. LVEF 60%. Normal LV chamber size, wall thickness and function. Technical review due to abscence of doppler images/measurements. . Findings: Study Quality * Technically adequate exam. * Technically sub-optimal due to body habitus. * Technical review due to doppler images. . Left Ventricle * LVEF 60%. * Normal LV chamber size, wall thickness and function. Left Atrium * Normal left atrial size. Right Atrium * Normal right atrial size. Interatrial Septum * No evidence of PFO by color Doppler. Aortic Valve * Trileaflet aortic valve. Mitral Valve * Normal mitral valve structure. * Trace mitral regurgitation. * Normal mitral valve structure and function. Tricuspid Valve * Normal tricuspid valve structure and function. Pulmonic Valve * No pulmonic stenosis. * Pulmonic valve is not well visualized. Aorta * Normally sized aortic root. Pericardium * The pericardium appears normal. Consult Discharge Plan - Plan Referrals: Vania Kenny MD [Primary Care Provider] -
--- NOTE | 2017-07-24 14:32 | Neurology Progress Note ---
Date of Encounter: 07/24/17 Time of Encounter: 07:45 Assessment and Plan (1) Dementia with behavioral disturbance Current Visit: No Status: Acute This patient who had a significant decline in the past several months admitted with generalized weakness fatigue and hallucinations Suggest to check for any underlying infection particularly UTI to make sure that is not the reason for her symptoms As far as her dementia is concerned she does seem to have a rapid decline in the last few months on her MRI of the brain and is no acute finding but she did have a significant white matter changes along with dilated ventricles with a concern of normal pressure hydrocephalus Certainty that need to be excluded patient could have a quick decline but it could been vascular dementia versus NPH when she is more stable suggest getting and a spinal tap and evaluate her gait and balance to see if there is an improvement as family has noted she did have some parkinsonian symptoms as well In the meantime continue to treat underlying infection or metabolic disturbance She would benefit from physical therapy and rehabilitation as well Also make sure that patient is awake during the daytime to ovoid any sundowning and difficulty sleep at nighttime if she started having hallucination perhaps repeat could be on low-dose of Seroquel 25 mg at bedtime Qualifiers: Dementia type: Alzheimer's disease Alzheimer's disease onset: unspecified onset Qualified Code(s): G30.9 - Alzheimer's disease, unspecified; F02.81 - Dementia in other diseases classified elsewhere with behavioral disturbance; F02.81 - Dementia in other diseases classified elsewhere with behavioral disturbance; F02.81 - Dementia in other diseases classified elsewhere with behavioral disturbance (2) Dilated ventricle Current Visit: Yes Status: Acute She had a CT scan at outside facility that showed dilated ventricles her last imaging studies of her head was in February 21 that was a stable I would recommend repeating an MRI scan of the head if it is not done yet to further evaluate her ventricular system (3) Encephalopathy Current Visit: No Status: Acute Subjective Principal diagnosis: SVT, AMS Interval history: Patient is stable no other new symptoms remained fluctuating confusion overall this is stable and slightly improved Objective - Constitutional Vitals: Temp Pulse Resp BP Pulse Ox 98.5 F 69 16 129/73 96 07/24/17 10:50 07/24/17 10:50 07/24/17 10:50 07/24/17 10:50 07/24/17 10:50 - Neurological Exam Sensorimotor examination: Present: intact Motor Examination: Present: grossly full strength in all extremities Sensation intact: Present: intact Reflexes: Biceps: 1+, Triceps: 1+, Brachioradialis: 1+, Patella: 1+, Achilles: 1 + Mental Status Examination: Present: awake, alert, oriented to person, opens eyes to noxious stimulation, makes eye contact, follows simple commands Cranial nerve examination: Present: PERRL, EOMI, no facial asymmetry is present , no dysarthria Results - Laboratory Findings CBC and BMP: 07/24/17 04:58 07/24/17 04:58 Abnormal lab findings: Abnormal lab results RBC 3.34 M/mcL (3.82-4.97) L 07/24/17 04:58 Hgb 10.2 g/dL (11.5-15.4) L 07/24/17 04:58 Hct 31.2 % (35.3-44.9) L 07/24/17 04:58 Potassium 3.3 mEq/L (3.5-5.1) L 07/24/17 04:58 Est GFR (Non-Af Amer) 58 (> 60) L 07/24/17 04:58 POC Glucose 93 (58-89) H 07/24/17 04:43 Troponin I 0.05 ng/mL (< 0.04) H* 07/22/17 04:35 Folate 28.0 ng/mL (3.0-16.0) H 07/22/17 17:14 Urine Ketones 40 mg/dL (Negative) H 07/22/17 14:37 Consult Discharge Plan - Plan Referrals: Vania Kenny MD [Primary Care Provider] -
--- NOTE | 2017-07-24 16:06 | Electrocardiograph Report ---
[place] [id number] Test Date: 2017-07-22 Pat Name: Jina Olguin Department: 113 Room: [facility] [place] Gender: F Fire Support Specialist: Shaylee : 1930 Requested By: Rene Waters Order Number: [id number] Reading MD: Meliton Galvan Measurements Intervals [place] Rate: 65 P: 71 WV: 179 QRS: 42 QRSD: 86 T: 67 QT: 390 QTc: 402 Interpretive Statements SINUS RHYTHM WITH SINUS ARRHYTHMIA POSSIBLE LEFT ATRIAL ENLARGEMENT Electronically Signed On 07-24-2017 16:04:23 EST by Meliton Galvan
[2017-07-25] MEDS: *HR* Metoprolol 5 MG/5 ML VIAL IVP SCH ×4 (00:58→17:29)
[2017-07-25 05:53] LABS: Hematocrit 34.6 % (35.3-44.9); Hemoglobin 11.5 g/dL (11.5-15.4); Mean Corpuscular HGB Conc 33.2 g/dL (31.6-35.5); Mean Corpuscular Hemoglobin 30.5 pg (28.0-33.3); Mean Corpuscular Volume 91.8 fL (83.0-100.0); Mean Platelet Volume 11.3 fL (9.4-12.4); Platelet Count 197 K/mcL (140-400); Red Blood Count 3.77 M/mcL (3.82-4.97); Red Cell Distribution Width 13.2 % (11.5-14.5)
[2017-07-25 06:05] LABS: BUN/Creatinine Ratio 18 (6-26); Blood Urea Nitrogen 14 mg/dL (8-23); Calcium 9.4 mg/dL (8.6-10.3); Carbon Dioxide 28 mEq/L (23-29); Chloride 103 mEq/L (98-107); Glucose 100 mg/dL (70-105); Osmolality,Calculated 287 (280-300); Potassium 3.1 mEq/L (3.5-5.1); Sodium 138 mEq/L (136-145); eGFR For African Americans > 60 (> 60); eGFR For Non-African Americans > 60 (> 60)
[2017-07-25] MEDS: *HR* Heparin 5,000 UNIT/ML VIAL SQ SCH ×2 (06:11→17:29)
--- NOTE | 2017-07-25 09:50 | Neurology Progress Note ---
Date of Encounter: 07/25/17 Time of Encounter: 07:20 Assessment and Plan (1) Dementia with behavioral disturbance Current Visit: No Status: Acute Patient continued to have fluctuating mental status changes likely related to underlying dementia. I did repeat MRI of the brain as there was a concern that she may have an NPH and dilated ventricles. MRI of the brain was reviewed and compared from the previous scan in February there are significant white matter changes throughout the brain along with atrophy though there are mildly dilated ventricles but does not seem to be significantly out of proportion likely related to underlying generalized atrophy Her blood work including vitamin B12 folate and TSH also been negative She continued to have sundowning suggested continued use Seroquel on as-needed basis If she remains stable perhaps better be to transfer her to home or usp with home physical therapy Continued on current medication and follow-up with neurology as an outpatient Qualifiers: Dementia type: Alzheimer's disease Alzheimer's disease onset: unspecified onset Qualified Code(s): G30.9 - Alzheimer's disease, unspecified; F02.81 - Dementia in other diseases classified elsewhere with behavioral disturbance; F02.81 - Dementia in other diseases classified elsewhere with behavioral disturbance; F02.81 - Dementia in other diseases classified elsewhere with behavioral disturbance (2) Dilated ventricle Current Visit: Yes Status: Acute (3) Encephalopathy Current Visit: No Status: Acute Subjective Principal diagnosis: SVT, AMS Interval history: Patient is stable no other new symptoms remained fluctuating confusion overall this is stable and slightly improved. had MRI OF Brain, as was a concern of dilated ventricle on her previous CT scan she had at outside facility Repeat MRI scan did not show any evidence of stroke, though she did have a slightly dilated ventricles but those are not related to underlying atrophy and not typical findings of NPH Objective - Constitutional Vitals: Temp Pulse Resp BP Pulse Ox 98.3 F 65 16 179/70 93 07/25/17 06:44 07/25/17 06:44 07/25/17 06:44 07/25/17 08:05 07/25/17 06:44 - Neurological Exam Sensorimotor examination: Present: intact Motor Examination: Present: grossly full strength in all extremities Sensation intact: Present: intact Mental Status Examination: Present: awake, alert, oriented to person, opens eyes to noxious stimulation, makes eye contact, follows simple commands Cranial nerve examination: Present: PERRL, EOMI, no facial asymmetry is present , no dysarthria Results - Laboratory Findings CBC and BMP: 07/25/17 05:29 07/25/17 05:29 Abnormal lab findings: Abnormal lab results RBC 3.77 M/mcL (3.82-4.97) L 07/25/17 05:29 Hct 34.6 % (35.3-44.9) L 07/25/17 05:29 Potassium 3.1 mEq/L (3.5-5.1) L 07/25/17 05:29 Troponin I 0.05 ng/mL (< 0.04) H* 07/22/17 04:35 Folate 28.0 ng/mL (3.0-16.0) H 07/22/17 17:14 Urine Ketones 40 mg/dL (Negative) H 07/22/17 14:37 - Diagnostic Findings Additional findings: Repeat MRI of the brain did not show any acute infarct significant white matter changes noted throughout the brain with mildly dilated ventricles likely related to underlying atrophy Consult Discharge Plan - Plan Referrals: Vania Kenny MD [Primary Care Provider] -
[2017-07-25] MEDS: 0.9 % Sodium Chloride 1,000 ML IVC SCH (10:13)
[2017-07-25] MEDS: Cholecalciferol (D-3) 1,000 UNIT TABLET PO SCH (13:13)
[2017-07-25 15:10] LABS: Bilirubin,Urine Negative (Negative); Blood,Urine Large (Negative); Clarity,Urine Turbid (Clear); Color,Urine Dark Yellow (Yellow); Glucose,Urine (UA) Normal (Normal); Ketones,Urine 15 mg/dL (Negative); Leukocyte Esterase,Urine Moderate (Negative); Nitrite,Urine Positive (Negative); Protein,Urine 100 mg/dL (Neg-Trace); Specific Gravity,Urine 1.016 (1.010-1.025); Urobilinogen,Urine Normal (Normal)
[2017-07-25 15:13] LABS: Bacteria,Urine Many per hpf (None-Few); Hyaline Casts,Urine None Seen per lpf (None-Few); RBC,Urine TNTC per hpf (0-3); Squamous Epithelial Cell,Urine Many per lpf (None-Few); WBC,Urine TNTC per hpf (0-3)
--- NOTE | 2017-07-25 17:46 | Internal Med Progress Note ---
Date of Encounter: 07/25/17 Time of Encounter: 09:05 - Assessment and plan (1) Acute encephalopathy Current Visit: Yes Status: Acute Assessment and plan: Patient presented with lethargy and drowsiness from home. She was brought from [facility] CT head from that hospital showed enlarged third, lateral ventricle consistent with past head CT concerning for hydrocephalus. Patient was exceptionally drowsy today, she did receive Seroquel 25 mg by mouth at bedtime last night. She has been drowsy the entire day. We will not reorder this tonight. Patient had urinary retention again today, Marks was placed here and was sent. Second urine indicative of UTI. This could be cause of patient's lethargy and confusion. Patient will be started on Rocephin 1 g IV. Patient has been evaluated by neurology. I appreciate their recommendations in consultation. Patient had a repeat MRI that showed mildly dilated ventricles, but does not seem to be significantly out of proportion and is probably related to underlying generalized atrophy. We will continue to monitor for progress after IV antibiotic treatment. Patient is close to nurses station Start IV antibiotics No sedating medications, do not give Seroquel tonight. Fall precautions and bed alarm. Dariana monitor vital signs and labs. (2) SVT (supraventricular tachycardia) Current Visit: Yes Status: Resolved Assessment and plan: Patient with prior history of SVT. Patient had episode of SVT at [facility], who was resolved with 12 mg of adenosine. Echocardiogram showed EF of 60% which was improved from prior. Beta jemima was added per cardiology Continue telemetry Continue beta jemima. (3) Elevated troponin Current Visit: Yes Status: Acute (4) Urinary retention Current Visit: Yes Status: Acute Assessment and plan: Pt had urinary retention on admission, marks was placed at that time, then removed the next day for voiding trial. Today, pt with distended lower abdomen, tender to palpation. Bladder scan revealed greater than 1200 mL's of urine, Marks placed. We will continue to maintain Marks and attempt voiding trial in a few days. (5) DVT prophylaxis Current Visit: No Status: Acute Assessment and plan: Heparin SQ (6) UTI (urinary tract infection) Current Visit: Yes Status: Acute Assessment and plan: Marks catheter inserted today for urinary retention. Specimen collected from tubing. Urine was turbid with large amount of blood, positive for nitrites, moderate amount of leukocyte esterase, too numerous to count red and white cells , many bacteria. Urine culture was not indicated due to many squamous epithelial cells. Lab was notified by me that it was a catheter specimen and repeat culture was ordered. Patient started on 1 g of Rocephin IV daily. Will monitor for culture and sensitivity and narrow antibiotics as needed. Qualifiers: Urinary tract infection type: site unspecified Hematuria presence: with hematuria Qualified Code(s): N39.0 - Urinary tract infection, site not specified; R31.9 - Hematuria, unspecified; R31.9 - Hematuria, unspecified - Time Spent With Patient 25 - 35 minutes - Subjective Interval history: Patient was initially seen and assessed and 9:05 AM. Patient was exceptionally drowsy and difficult to arouse. Her physical exam was unremarkable other than low abdominal tenderness. Bladder scan revealed the patient had over 1200 mL of urine in her bladder. Marks catheter was inserted and the specimen was collected. She became arousable later in the afternoon and woke up and spoke to family. I visited with the patient and family multiple times through the day. - Constitutional Vitals: Temp Pulse Resp BP Pulse Ox 99.5 F 85 15 126/78 94 07/25/17 15:49 07/25/17 15:49 07/25/17 15:49 07/25/17 15:49 07/25/17 15:49 General appearance: Present: cooperative, A&O X 1, pleasant, no acute distress. Absent: answers questions appropriately - Head Head exam: Present: atraumatic, normal inspection, normocephalic - Eye Eye exam: Present: normal appearance, conjuntiva pink, sclera anicteric - Neck Neck exam general surgery: Present: supple, trachea midline. Absent: lymphadenopathy, tenderness - Respiratory Respiratory exam: Present: CTAB. Absent: accessory muscle use, chest wall tenderness, rales, respiratory distress, rhonchi, wheezes - Cardiovascular Cardiovascular exam: Present: RRR, +S1, +S2. Absent: diastolic murmur, gallop, rubs, systolic murmur - GI/Abdominal GI/Abdominal exam: Present: normal bowel sounds, soft. Absent: distended, hepatomegaly, tenderness - Extremities Exam Extremities exam: Present: normal capillary refill, normal inspection, warm, radial pulses palpable and symmetrical. Absent: calf tenderness, cyanotic, pedal edema, tenderness - Neurological Exam Neurological exam: Present: altered. Absent: alert, facial droop, speech deficit - Skin Skin exam: Present: dry, intact, normal color, warm. Absent: rash Internal Medicine: Result - Labs CBC & Chem 7: 07/25/17 05:29 07/25/17 05:29 Labs: Short CBC 07/25/17 Range/Units 05:29 WBC 9.0 (4.3-11.1) K/mcL Hgb 11.5 (11.5-15.4) g/dL Hct 34.6 L (35.3-44.9) % Plt Count 197 (140-400) K/mcL BMP 07/25/17 05:29 Sodium 138 Potassium 3.1 L Chloride 103 Carbon Dioxide 28 BUN 14 Creatinine 0.79 Glucose 100 Calcium 9.4 Urine 07/25/17 Range/Units 14:57 Urine Color Dark Yellow (Yellow) Urine Clarity Turbid A (Clear) Urine pH 6.0 (5.0-8.0) pH Units Ur Specific [place]ell 1.016 (1.010-1.025) Urine Protein 100 H (Neg-Trace) mg/dL Urine Glucose (UA) Normal (Normal) mg/dL - Impressions Impressions Brain MRI 07/24/17 14:38 IMPRESSION: Senescent changes. Chronic type white matter signal changes, microvascular ischemic disease, similar to prior study. No acute infarct. D/ / Elroy Machado MD / Elroy Machado MD Interpreting Provider: Elroy Machado MD Consult Discharge Plan - Plan Referrals: Vania Kenny MD [Primary Care Provider] -
[2017-07-25] MEDS: cefTRIAXone 1,000 MG in Water for inj. (sterile) 20 ML 10 ML IVP SCH (18:07)
[2017-07-26] MEDS: *HR* Metoprolol 5 MG/5 ML VIAL IVP SCH ×4 (00:13→18:21)
[2017-07-26 04:12] LABS: Hematocrit 32.8 % (35.3-44.9); Hemoglobin 10.9 g/dL (11.5-15.4); Mean Corpuscular HGB Conc 33.2 g/dL (31.6-35.5); Mean Corpuscular Hemoglobin 30.5 pg (28.0-33.3); Mean Corpuscular Volume 91.9 fL (83.0-100.0); Mean Platelet Volume 11.6 fL (9.4-12.4); Platelet Count 179 K/mcL (140-400); Red Blood Count 3.57 M/mcL (3.82-4.97); Red Cell Distribution Width 13.4 % (11.5-14.5)
[2017-07-26 04:31] LABS: Calcium 9.5 mg/dL (8.6-10.3); Potassium 3.2 mEq/L (3.5-5.1)
[2017-07-26] MEDS: *HR* Heparin 5,000 UNIT/ML VIAL SQ SCH ×2 (05:18→18:21)
[2017-07-26 08:18] LABS: CKMB Percent NOT DONE (0.0-5.0)
[2017-07-26] MEDS: Cholecalciferol (D-3) 1,000 UNIT TABLET PO SCH (08:56)
[2017-07-26] MEDS: cefTRIAXone 1,000 MG in Water for inj. (sterile) 20 ML 10 ML IVP SCH (08:57)
--- NOTE | 2017-07-26 10:25 | Neurology Progress Note ---
Date of Encounter: 07/26/17 Time of Encounter: 07:15 Assessment and Plan (1) Dementia with behavioral disturbance Current Visit: No Status: Acute Baseline dementia and fluctuating mental status worsening due to UTI changes in environment suggest continuing the current treatment Qualifiers: Dementia type: Alzheimer's disease Alzheimer's disease onset: unspecified onset Qualified Code(s): G30.9 - Alzheimer's disease, unspecified; F02.81 - Dementia in other diseases classified elsewhere with behavioral disturbance; F02.81 - Dementia in other diseases classified elsewhere with behavioral disturbance; F02.81 - Dementia in other diseases classified elsewhere with behavioral disturbance (2) Dilated ventricle Current Visit: Yes Status: Acute She had a CT scan at outside facility that showed dilated ventricles her last imaging studies of her head was in February 21 that was a stable Repeat MRI was reviewed did not show any significantly dilated ventricles though and it is some dilatation but suspected related to underlying cerebral atrophy I have also reviewed with the previous MRI in February significant change noted to have significant white matter changes noted throughout the whole brain perhaps could be the cause of her dementia Regardless no clinical typical signs and symptoms of NPH do not think that a spinal tap would be helpful no further workup is indicated at this time (3) Encephalopathy Current Visit: No Status: Acute Patient having these fluctuating mental status worsening likely related to UTI that she been having frequently certainly can have significant changes in overall mentation due to sundowning and worsening of her mental status She was having hallucination earlier for which she has received seroquel, that has caused significant drowsiness and was discontinued She may continue to have hallucination off and on likely related to UTI and changes in environment Subjective Principal diagnosis: SVT, AMS Interval history: Patient is stable no other new symptoms remained fluctuating confusion overall this is stable and slightly improved. had MRI OF Brain, as was a concern of dilated ventricle on her previous CT scan she had at outside facility Repeat MRI scan did not show any evidence of stroke, though she did have a slightly dilated ventricles but those are not related to underlying atrophy and not typical findings of NPH Objective - Constitutional Vitals: Temp Pulse Resp BP Pulse Ox 98.5 F 63 17 145/75 98 07/26/17 07:55 07/26/17 07:55 07/26/17 07:55 07/26/17 07:55 07/26/17 07:55 - Neurological Exam Sensorimotor examination: Present: intact Motor Examination: Present: grossly full strength in all extremities Sensation intact: Present: intact Mental Status Examination: Present: awake, alert, oriented to person, opens eyes to noxious stimulation, makes eye contact, follows simple commands Cranial nerve examination: Present: PERRL, EOMI, no facial asymmetry is present , no dysarthria Results - Laboratory Findings CBC and BMP: 07/26/17 03:54 07/26/17 03:54 Abnormal lab findings: Abnormal lab results RBC 3.57 M/mcL (3.82-4.97) L 07/26/17 03:54 Hgb 10.9 g/dL (11.5-15.4) L 07/26/17 03:54 Hct 32.8 % (35.3-44.9) L 07/26/17 03:54 Potassium 3.2 mEq/L (3.5-5.1) L 07/26/17 03:54 BUN 27 mg/dL (8-23) H 07/26/17 03:54 Est GFR ( Amer) 58 (> 60) L 07/26/17 03:54 Est GFR (Non-Af Amer) 48 (> 60) L 07/26/17 03:54 CK-MB (CK-2) 7.0 ug/L (0.0-5.0) H 07/22/17 06:50 Troponin I 0.05 ng/mL (< 0.04) H* 07/22/17 04:35 Folate 28.0 ng/mL (3.0-16.0) H 07/22/17 17:14 Urine Clarity Turbid (Clear) A 07/25/17 14:57 Urine Protein 100 mg/dL (Neg-Trace) H 07/25/17 14:57 Urine Ketones 15 mg/dL (Negative) H 07/25/17 14:57 Urine Blood Large (Negative) H 07/25/17 14:57 Urine Nitrite Positive (Negative) A 07/25/17 14:57 Ur Leukocyte Esterase Moderate (Negative) H 07/25/17 14:57 Urine Microscopic RBC TNTC per hpf (0-3) H 07/25/17 14:57 Urine Microscopic WBC TNTC per hpf (0-3) H 07/25/17 14:57 Ur Squamous Epith Cells Many per lpf (None-Few) H 07/25/17 14:57 Urine Bacteria Many per hpf (None-Few) H 07/25/17 14:57 Consult Discharge Plan - Plan Referrals: Vania Kenny MD [Primary Care Provider] -
--- NOTE | 2017-07-26 17:32 | Internal Med Progress Note ---
Date of Encounter: 07/26/17 Time of Encounter: 10:40 - Assessment and plan (1) Acute encephalopathy Current Visit: Yes Status: Acute Assessment and plan: Patient presented with lethargy and drowsiness from home. She was brought from [facility] CT head from that hospital showed enlarged third, lateral ventricle consistent with past head CT concerning for hydrocephalus. Patient has improved significantly today, perhaps in part due to treating underlying urinary tract infection. Patient is alert, awake, intermittent confusion today. Patient has been evaluated by neurology. I appreciate their recommendations and consultation. Patient had a repeat MRI that showed mildly dilated ventricles, but does not seem to be significantly out of proportion and is probably related to underlying generalized atrophy. Patient is close to nurses station Continue IV antibiotics No sedating medications Fall precautions and bed alarm. Continue to monitor vital signs and labs. (2) SVT (supraventricular tachycardia) Current Visit: Yes Status: Resolved Assessment and plan: Patient with prior history of SVT. Patient had episode of SVT at [facility], it was resolved with 12 mg of adenosine. Echocardiogram showed EF of 60% which was improved from prior. Beta jemima was added per cardiology Continue telemetry Continue beta jemima. (3) Elevated troponin Current Visit: Yes Status: Acute Assessment and plan: Evaluated by cardiology who suspects secondary to SVT. TTE with preserved EF. Continue telemetry. No further workup at this time. (4) Urinary retention Current Visit: Yes Status: Acute Assessment and plan: Pt had urinary retention on admission, marks was placed at that time, then removed the next day for voiding trial. 07/25/17 pt with distended lower abdomen, tender to palpation. Bladder scan revealed greater than 1200 mL's of urine, Marks placed. We will continue to maintain Marks and attempt voiding trial in a few days. (5) DVT prophylaxis Current Visit: No Status: Acute Assessment and plan: SQ Heparin and NEYMAR hose ordered. (6) UTI (urinary tract infection) Current Visit: Yes Status: Acute Assessment and plan: Marks catheter inserted for urinary retention. Specimen collected from tubing. Urine was turbid with large amount of blood, positive for nitrites, moderate amount of leukocyte esterase, too numerous to count red and white cells, many bacteria. Urine culture was not indicated due to many squamous epithelial cells. Patient started on 1 g of Rocephin IV daily. Will monitor for culture and sensitivity and narrow antibiotics as needed. Qualifiers: Urinary tract infection type: site unspecified Hematuria presence: with hematuria Qualified Code(s): N39.0 - Urinary tract infection, site not specified; R31.9 - Hematuria, unspecified; R31.9 - Hematuria, unspecified - Subjective Interval history: Patient was initially seen and assessed and 1040 AM. Patient is alert, awake. At times she answers questions appropriately, she also states that she feels like she is on a trip and that she wished that she knew where she was going before she went. Family is at bedside and they are agreeable to her being admitted to SNF for rehabilitation. Patient is debilitated, is primary caregiver. He states he is unable to care for her at home and her current state. Patient denies headache or abdominal pain. No nausea or vomiting. - Constitutional Vitals: Temp Pulse Resp BP Pulse Ox 98.1 F 68 16 174/89 98 07/26/17 16:00 07/26/17 16:52 07/26/17 16:52 07/26/17 16:52 07/26/17 16:52 General appearance: Present: cooperative, A&O X 1, pleasant, no acute distress. Absent: answers questions appropriately - Head Head exam: Present: atraumatic, normal inspection, normocephalic - Eye Eye exam: Present: normal appearance, PERRL, conjuntiva pink, sclera anicteric - Neck Neck exam general surgery: Present: normal inspection, supple, trachea midline. Absent: lymphadenopathy, tenderness - Respiratory Respiratory exam: Present: CTAB. Absent: accessory muscle use, rales, rhonchi, wheezes - Cardiovascular Cardiovascular exam: Present: RRR, +S1, +S2. Absent: diastolic murmur, gallop, rubs, systolic murmur - GI/Abdominal GI/Abdominal exam: Present: normal bowel sounds, soft. Absent: distended, hepatomegaly, tenderness - Extremities Exam Extremities exam: Present: normal capillary refill, normal inspection, warm, radial pulses palpable and symmetrical. Absent: calf tenderness, cyanotic, pedal edema, tenderness - Neurological Exam Neurological exam: Present: alert, altered, no focal deficits. Absent: oriented X3, facial droop, speech deficit - Skin Skin exam: Present: dry, intact, normal color, warm. Absent: rash Internal Medicine: Result - Labs CBC & Chem 7: 07/26/17 03:54 07/26/17 03:54 Labs: Short CBC 07/26/17 Range/Units 03:54 WBC 9.2 (4.3-11.1) K/mcL Hgb 10.9 L (11.5-15.4) g/dL Hct 32.8 L (35.3-44.9) % Plt Count 179 (140-400) K/mcL BMP 07/26/17 03:54 Sodium 139 Potassium 3.2 L Chloride 104 Carbon Dioxide 27 BUN 27 H Creatinine 1.08 Glucose 88 Calcium 9.5 Cardiac Enzymes 07/22/17 Range/Units 06:50 CK-MB (CK-2) 7.0 H (0.0-5.0) ug/L Consult Discharge Plan - Plan Referrals: Vania Kenny MD [Primary Care Provider] -
[2017-07-26] MEDS: Megestrol Acetate 400 MG/10 ML UDC PO SCH (18:21)
[2017-07-27] MEDS: *HR* Metoprolol 5 MG/5 ML VIAL IVP SCH ×3 (00:08→13:09)
[2017-07-27] MEDS: *HR* Heparin 5,000 UNIT/ML VIAL SQ SCH ×2 (05:35→18:28)
[2017-07-27 06:36] LABS: Hematocrit 30.4 % (35.3-44.9); Hemoglobin 10.1 g/dL (11.5-15.4); Mean Corpuscular HGB Conc 33.2 g/dL (31.6-35.5); Mean Corpuscular Hemoglobin 30.8 pg (28.0-33.3); Mean Corpuscular Volume 92.7 fL (83.0-100.0); Mean Platelet Volume 11.8 fL (9.4-12.4); Platelet Count 176 K/mcL (140-400); Red Blood Count 3.28 M/mcL (3.82-4.97); Red Cell Distribution Width 13.4 % (11.5-14.5)
[2017-07-27 06:55] LABS: BUN/Creatinine Ratio 29 (6-26); Blood Urea Nitrogen 27 mg/dL (8-23); Calcium 9.4 mg/dL (8.6-10.3); Carbon Dioxide 26 mEq/L (23-29); Chloride 107 mEq/L (98-107); Glucose 106 mg/dL (70-105); Osmolality,Calculated 294 (280-300); Potassium 3.9 mEq/L (3.5-5.1); Sodium 139 mEq/L (136-145); eGFR For African Americans > 60 (> 60); eGFR For Non-African Americans 57 (> 60)
[2017-07-27] MEDS: Megestrol Acetate 400 MG/10 ML UDC PO SCH (09:58)
[2017-07-27] MEDS: Cholecalciferol (D-3) 1,000 UNIT TABLET PO SCH (09:58)
[2017-07-27] MEDS: cefTRIAXone 1,000 MG in Water for inj. (sterile) 20 ML 10 ML IVP SCH (09:59)
[2017-07-27] MEDS ORDERED: *HR* LORazepam 0.5 MG TABLET PO PRN (17:16)
--- NOTE | 2017-07-27 17:23 | Internal Med Progress Note ---
Date of Encounter: 07/27/17 Time of Encounter: 09:15 - Assessment and plan (1) Acute encephalopathy Current Visit: Yes Status: Acute Assessment and plan: Patient presented with lethargy and drowsiness from home. She was brought from [facility] CT head from that hospital showed enlarged third, lateral ventricle consistent with past head CT concerning for hydrocephalus. Patient has improved significantly today, perhaps in part due to treating underlying urinary tract infection. Patient is alert, awake, intermittent confusion today. Patient has been evaluated by neurology. I appreciate their recommendations and consultation. Suggests baseline dementia as well as fluctuating mental status due to UTI and changes in environment. Continue current treatment. Metabolic encephalopathy secondary to UTI continuing to resolve. Patient is close to nurses station Continue IV antibiotics No sedating medications Fall precautions and bed alarm. Continue to monitor vital signs and labs. (2) SVT (supraventricular tachycardia) Current Visit: Yes Status: Resolved Assessment and plan: Patient with prior history of SVT. Patient had episode of SVT at [facility], it was resolved with 12 mg of adenosine. Echocardiogram showed EF of 60% which was improved from prior. Beta jemima was added per cardiology. Vitals are stable, no bradycardia or hypotension. Continue telemetry Continue beta jemima. (3) Elevated troponin Current Visit: Yes Status: Resolved Assessment and plan: Evaluated by cardiology who suspects secondary to SVT. TTE with preserved EF. Continue telemetry. No further workup at this time. (4) Urinary retention Current Visit: Yes Status: Acute Assessment and plan: Pt had urinary retention on admission, marks was placed at that time, then removed the next day for voiding trial. 07/25/17 pt with distended lower abdomen, tender to palpation. Bladder scan revealed greater than 1200 mL's of urine, Marks placed. We will continue to maintain Marks and attempt voiding trial. (5) DVT prophylaxis Current Visit: No Status: Acute Assessment and plan: SQ Heparin and NEYMAR hose. (6) UTI (urinary tract infection) Current Visit: Yes Status: Acute Assessment and plan: Marks catheter inserted for urinary retention. Urine was turbid with large amount of blood, positive for nitrites, moderate amount of leukocyte esterase, too numerous to count red and white cells, many bacteria. Urine culture was not indicated due to many squamous epithelial cells. Patient started on 1 g of Rocephin IV daily. Preliminary culture GNR. Continue Rocephin and wait on sensitivity. Qualifiers: Urinary tract infection type: site unspecified Hematuria presence: with hematuria Qualified Code(s): N39.0 - Urinary tract infection, site not specified; R31.9 - Hematuria, unspecified; R31.9 - Hematuria, unspecified - Time Spent With Patient less than 15 minutes - Subjective Interval history: Patient was initially seen and assessed and 0915 AM. Patient is alert, awake. She is more oriented than I have seen her since arrival. She denies pain, chest pain, headache, n/v/d, or diarrhea. - Constitutional Vitals: Temp Pulse Resp BP Pulse Ox 99.4 F 75 16 116/66 96 07/27/17 15:03 07/27/17 15:03 07/27/17 15:03 07/27/17 15:03 07/27/17 15:03 General appearance: Present: cooperative, A&O X 1, pleasant, no acute distress. Absent: answers questions appropriately - Head Head exam: Present: atraumatic, normal inspection, normocephalic - Eye Eye exam: Present: conjuntiva pink, sclera anicteric Pupils: Present: PERRL - Neck Neck exam general surgery: Present: supple, trachea midline. Absent: lymphadenopathy - Respiratory Respiratory exam: Present: CTAB. Absent: accessory muscle use, decreased breath sounds, rales, rhonchi, wheezes - Cardiovascular Cardiovascular exam: Present: RRR, +S1, +S2. Absent: diastolic murmur, gallop, rubs, systolic murmur - GI/Abdominal GI/Abdominal exam: Present: normal bowel sounds, soft. Absent: distended, hepatomegaly, tenderness - Extremities Exam Extremities exam: Present: normal inspection, warm, radial pulses palpable and symmetrical. Absent: calf tenderness, cyanotic, pedal edema, tenderness - Neurological Exam Neurological exam: Present: alert, oriented X3, no focal deficits. Absent: facial droop, speech deficit - Skin Skin exam: Present: dry, intact, warm. Absent: rash Internal Medicine: Result - Labs CBC & Chem 7: 07/27/17 06:10 07/27/17 06:10 Labs: Short CBC 07/27/17 Range/Units 06:10 WBC 8.9 (4.3-11.1) K/mcL Hgb 10.1 L (11.5-15.4) g/dL Hct 30.4 L (35.3-44.9) % Plt Count 176 (140-400) K/mcL BMP 07/27/17 06:10 Sodium 139 Potassium 3.9 Chloride 107 Carbon Dioxide 26 BUN 27 H Creatinine 0.93 Glucose 106 H Calcium 9.4 Consult Discharge Plan - Plan Referrals: Vania Kenny MD [Primary Care Provider] -
[2017-07-28] MEDS: *HR* Heparin 5,000 UNIT/ML VIAL SQ SCH ×2 (06:20→17:32)
[2017-07-28] MEDS: Megestrol Acetate 400 MG/10 ML UDC PO SCH (09:48)
[2017-07-28] MEDS: Cholecalciferol (D-3) 1,000 UNIT TABLET PO SCH (09:48)
--- NOTE | 2017-07-28 10:25 | Internal Med Progress Note ---
Date of Encounter: 07/28/17 Time of Encounter: 09:30 - Assessment and plan (1) Acute encephalopathy Current Visit: Yes Status: Resolved Assessment and plan: Patient presented with lethargy and drowsiness from home. She was brought from [facility] CT head from that hospital showed enlarged third, lateral ventricle consistent with past head CT concerning for hydrocephalus. Patient has improved significantly, perhaps in part due to treating underlying urinary tract infection. Patient has been evaluated by neurology. I appreciate their recommendations and consultation. Suggests baseline dementia as well as fluctuating mental status due to UTI and changes in environment. Continue current treatment. Metabolic encephalopathy secondary to UTI. Resolved. Pt is back to baseline 07/28/17. Patient is close to nurses station PO antibiotics No sedating medications Fall precautions and bed alarm. Continue to monitor vital signs and labs. (2) SVT (supraventricular tachycardia) Current Visit: Yes Status: Resolved Assessment and plan: Patient with prior history of SVT. Patient had episode of SVT at [facility], it was resolved with 12 mg of adenosine. Echocardiogram showed EF of 60% which was improved from prior. Beta jemima was added per cardiology. Vitals are stable, no bradycardia or hypotension. Telemetry stopped and pt was moved to a non-telemetry unit. Continue beta jemima. (3) Elevated troponin Current Visit: Yes Status: Resolved Assessment and plan: Evaluated by cardiology who suspects secondary to SVT. TTE with preserved EF. Continue telemetry. No further workup at this time. (4) Urinary retention Current Visit: Yes Status: Acute Assessment and plan: Attempted voiding trial, appears to be unsuccessful. Replace marks and follow with urology. Last night at 11pm, pt had 253ml urine in her bladder. (5) UTI (urinary tract infection) Current Visit: Yes Status: Acute Assessment and plan: Marks catheter inserted for urinary retention. Urine was turbid with large amount of blood, positive for nitrites, moderate amount of leukocyte esterase, too numerous to count red and white cells, many bacteria. Urine culture was not indicated due to many squamous epithelial cells. IV Rocephin has been stopped, final culture + for E. coli, sensitive to Macrobid. Pt will need to follow with Urology after discharge for urinary retention. Plan as above. Qualifiers: Urinary tract infection type: site unspecified Hematuria presence: with hematuria Qualified Code(s): N39.0 - Urinary tract infection, site not specified; R31.9 - Hematuria, unspecified; R31.9 - Hematuria, unspecified (6) DVT prophylaxis Current Visit: No Status: Acute Assessment and plan: Heparin SQ daily and NEYMAR hose. - Time Spent With Patient less than 15 minutes - Subjective Interval history: Patient was initially seen and assessed and 0930 AM. Patient is alert, awake. Pt continues to be alert and is oriented to name. She denies pain, chest pain, headache, n/v/d, or diarrhea. She still believes that she and her are on a trip and that she is in the nursery at [facility] in a hotel. She is pleasant and calm and denies needs. - Constitutional Vitals: Temp Pulse Resp BP Pulse Ox 98.0 F 85 14 167/74 100 07/28/17 07:30 07/28/17 07:30 07/28/17 07:30 07/28/17 07:30 07/28/17 07:30 General appearance: Present: cooperative, A&O X 1, pleasant, no acute distress. Absent: answers questions appropriately - Head Head exam: Present: atraumatic, normal inspection, normocephalic - Eye Eye exam: Present: normal appearance, conjuntiva pink, sclera anicteric - Neck Neck exam general surgery: Present: supple, trachea midline. Absent: lymphadenopathy, tenderness - Respiratory Respiratory exam: Present: CTAB. Absent: accessory muscle use, chest wall tenderness, decreased breath sounds, rales, respiratory distress, rhonchi, wheezes - Cardiovascular Cardiovascular exam: Present: RRR, +S1, +S2. Absent: diastolic murmur, gallop, rubs, systolic murmur - GI/Abdominal GI/Abdominal exam: Present: normal bowel sounds, soft, no peritoneal signs. Absent: hepatomegaly, tenderness - Extremities Exam Extremities exam: Present: warm, radial pulses palpable and symmetrical. Absent : calf tenderness, cyanotic, pedal edema - Neurological Exam Neurological exam: Present: alert, altered, no focal deficits. Absent: oriented X3, pronater drift, facial droop, speech deficit - Skin Skin exam: Present: dry, intact, normal color, warm. Absent: rash Internal Medicine: Result - Labs CBC & Chem 7: 07/27/17 06:10 07/27/17 06:10 Consult Discharge Plan - Plan Referrals: Vania Kenny MD [Primary Care Provider] -
[2017-07-28] MEDS: Nitrofurantoin (BID) 100 MG CAPSULE PO SCH (17:32)
[2017-07-29] MEDS: *HR* Heparin 5,000 UNIT/ML VIAL SQ SCH ×2 (05:12→16:57)
[2017-07-29] MEDS: Megestrol Acetate 400 MG/10 ML UDC PO SCH (09:02)
[2017-07-29] MEDS: Nitrofurantoin (BID) 100 MG CAPSULE PO SCH ×2 (09:02→16:57)
[2017-07-29] MEDS: Cholecalciferol (D-3) 1,000 UNIT TABLET PO SCH (09:02)
[2017-07-29] MEDS ORDERED: Acetaminophen 325 MG TABLET PO PRN (17:16)
--- NOTE | 2017-07-29 17:39 | Internal Med Progress Note ---
Date of Encounter: 07/29/17 Time of Encounter: 15:45 - Assessment and plan (1) Acute encephalopathy Current Visit: Yes Status: Resolved Assessment and plan: Patient presented with lethargy and drowsiness from home. CT head from [facility] showed enlarged third, lateral ventricle consistent with past head CT concerning for hydrocephalus. Patient has improved significantly, slightly due to treating underlying urinary tract infection. Patient has been evaluated by neurology. I appreciate their recommendations and consultation. Suggests baseline dementia as well as fluctuating mental status due to UTI and changes in environment. Continue current treatment. Metabolic encephalopathy secondary to UTI. Resolved. Pt is back to baseline 07/28/17. PO antibiotics No sedating medications Fall precautions and bed alarm. Continue to monitor vital signs and labs. (2) SVT (supraventricular tachycardia) Current Visit: Yes Status: Resolved Assessment and plan: Patient with prior history of SVT. Patient had episode of SVT at [facility], it was resolved with 12 mg of adenosine. Echocardiogram showed EF of 60% which was improved from prior. Beta jemima was added per cardiology. Vitals are stable, no bradycardia or hypotension. Telemetry stopped and pt was moved to a non-telemetry unit. Continue beta jemima. (3) Urinary retention Current Visit: Yes Status: Acute Assessment and plan: Attempted voiding trial, appears to be unsuccessful. Replace marks and follow with urology. Last night at 11pm, pt had 253ml urine in her bladder. Patient continues to have intermittent bouts of urinary retention. Marks was weaned to be restarted, however patient voided. Earlier today patient had 800 mL of urine in her bladder per bladder scan, patient got up voided also had wet attends. Primary nurse states that she is going to scan bladder again prior to leaving [facility] and will if more than 200 and thousand urine in the bladder. Abdomen mildly tender to palpation during assessment today. Patient is still receiving by mouth antibiotics. (4) UTI (urinary tract infection) Current Visit: Yes Status: Acute Assessment and plan: Marks catheter inserted for urinary retention. Urine was turbid with large amount of blood, positive for nitrites, moderate amount of leukocyte esterase, too numerous to count red and white cells, many bacteria. Urine culture was not indicated due to many squamous epithelial cells. IV Rocephin has been stopped, final culture + for E. coli, sensitive to Macrobid. Pt will need to follow with Urology after discharge for urinary retention. Plan as above. Qualifiers: Urinary tract infection type: site unspecified Hematuria presence: with hematuria Qualified Code(s): N39.0 - Urinary tract infection, site not specified; R31.9 - Hematuria, unspecified; R31.9 - Hematuria, unspecified (5) DVT prophylaxis Current Visit: No Status: Acute Assessment and plan: Heparin SQ daily and NEYMAR hose. - Time Spent With Patient less than 15 minutes - Subjective Interval history: Patient was initially seen and assessed and 1545. Patient is drowsy, arousable. Pt continues to be alert and is oriented to name. She denies pain, chest pain, headache, n/v/d, or diarrhea. - Constitutional Vitals: Temp Pulse Resp BP Pulse Ox 98.9 F 76 20 155/73 96 07/29/17 15:41 07/29/17 15:41 07/29/17 15:41 07/29/17 15:41 07/29/17 15:41 General appearance: Present: cooperative, A&O X 1, pleasant, no acute distress. Absent: mild distress, answers questions appropriately - Head Head exam: Present: atraumatic, normal inspection, normocephalic - Eye Eye exam: Present: PERRL, conjuntiva pink, sclera anicteric Pupils: Present: PERRL - Neck Neck exam general surgery: Present: supple, trachea midline. Absent: lymphadenopathy - Respiratory Respiratory exam: Present: CTAB. Absent: accessory muscle use, rales, rhonchi, wheezes - Cardiovascular Cardiovascular exam: Present: RRR, +S1, +S2. Absent: diastolic murmur, gallop, rubs, systolic murmur - GI/Abdominal GI/Abdominal exam: Present: normal bowel sounds, soft, tenderness. Absent: distended, hepatomegaly - Extremities Exam Extremities exam: Present: warm, radial pulses palpable and symmetrical. Absent : calf tenderness, cyanotic, pedal edema - Neurological Exam Neurological exam: Present: alert, oriented X3, no focal deficits. Absent: pronater drift, facial droop, speech deficit - Skin Skin exam: Present: dry, intact. Absent: rash Internal Medicine: Result - Labs CBC & Chem 7: 07/27/17 06:10 07/27/17 06:10 Consult Discharge Plan - Plan Referrals: Vania Kenny MD [Primary Care Provider] -
[2017-07-30 04:48] LABS: Basophils % 0.5 %; Eosinophils # 0.4 K/mcL (0.0-0.6); Eosinophils % 4.7 %; Hematocrit 33.8 % (35.3-44.9); Hemoglobin 10.9 g/dL (11.5-15.4); Immature Granulocytes % 0.7 % (0-4); Lymphocytes # 1.4 K/mcL (0.6-4.6); Lymphocytes % 18.5 %; Mean Corpuscular HGB Conc 32.2 g/dL (31.6-35.5); Mean Corpuscular Hemoglobin 30.2 pg (28.0-33.3); Mean Corpuscular Volume 93.6 fL (83.0-100.0); Mean Platelet Volume 12.2 fL (9.4-12.4); Monocytes # 0.6 K/mcL (0.0-1.3); Monocytes % 7.5 %; Neutrophils # 5.2 K/mcL (1.6-8.9); Platelet Count 227 K/mcL (140-400); Red Blood Count 3.61 M/mcL (3.82-4.97); Red Cell Distribution Width 13.9 % (11.5-14.5); Segmented Neutrophils % 68.1 %
[2017-07-30 04:55] LABS: BUN/Creatinine Ratio 25 (6-26); Blood Urea Nitrogen 23 mg/dL (8-23); Carbon Dioxide 27 mEq/L (23-29); Chloride 105 mEq/L (98-107); Glucose 93 mg/dL (70-105); Osmolality,Calculated 283 (280-300); Potassium 4.7 mEq/L (3.5-5.1); Sodium 135 mEq/L (136-145); eGFR For African Americans > 60 (> 60); eGFR For Non-African Americans 59 (> 60)
[2017-07-30] MEDS: *HR* Heparin 5,000 UNIT/ML VIAL SQ SCH ×2 (05:34→17:41)
[2017-07-30] MEDS: Nitrofurantoin (BID) 100 MG CAPSULE PO SCH ×2 (11:10→17:44)
[2017-07-30] MEDS: Megestrol Acetate 400 MG/10 ML UDC PO SCH (11:10)
[2017-07-30] MEDS: Cholecalciferol (D-3) 1,000 UNIT TABLET PO SCH (11:10)
--- NOTE | 2017-07-30 16:15 | Discharge Summary ---
Date of Encounter: 07/30/17 Time of Encounter: 15:00 - Discharge Diagnosis (1) Acute encephalopathy Priority: Primary Status: Resolved Comments: Patient presented with lethargy and drowsiness from home. CT head from outlying hospital showed enlarged third, lateral ventricle consistent with past head CT concerning for hydrocephalus. Patient has improved significantly, slightly due to treating underlying urinary tract infection. Patient has been evaluated by neurology. I appreciate their recommendations and consultation. Suggests baseline dementia as well as fluctuating mental status due to UTI and changes in environment. Continue current treatment. Metabolic encephalopathy secondary to UTI. Resolved. Pt is back to baseline 07/28/17. Pt has waxing and waning confusion, as is typical with dementia. Continue to monitor condition at [facility]. (2) SVT (supraventricular tachycardia) Priority: Secondary Status: Resolved (3) Urinary retention Priority: Secondary Status: Acute Comments: Attempted voiding trial, appears to be unsuccessful. Replace marks and follow with urology. Patient continues to have intermittent bouts of urinary retention. She has failed a voiding trial twice since admission. Marks was reinserted today after bladder scan revealed greater than 800 mL of urine. Abdomen mildly tender to palpation during assessment today. Patient is still receiving by mouth antibiotics. Pt will need to follow with urology in [place] after discharge. Repeat urine ordered with marks today. (4) UTI (urinary tract infection) Priority: Secondary Status: Acute Comments: Marks catheter inserted for urinary retention. Urine was turbid with large amount of blood, positive for nitrites, moderate amount of leukocyte esterase, too numerous to count red and white cells, many bacteria. Urine culture was not indicated due to many squamous epithelial cells. IV Rocephin has been stopped, final culture + for E. coli, sensitive to Macrobid. Pt will need to follow with Urology after discharge for urinary retention. Plan as above. Second urine ordered and pending after urinary retention today and marks placed. Qualifiers: Urinary tract infection type: site unspecified Hematuria presence: with hematuria Qualified Code(s): N39.0 - Urinary tract infection, site not specified; R31.9 - Hematuria, unspecified; R31.9 - Hematuria, unspecified (5) DVT prophylaxis Priority: Secondary Status: Acute Comments: Heparin subcutaneous and NEYMAR hose. - Discharge Medications Home Medications: Ergocalciferol (VITAMIN D2) [Vitamin D] 800 unit PO DAILY 02/28/17 [History] Multivit with Calcium,Iron,Min [One Daily Women's] 1 tab PO DAILY 02/28/17 [ History] Mv-Mn/FA/Vit K1/Lycop/Lut/Zeax [Ocuvite Eye + Multi Tablet] 1 tab PO DAILY 02/28 [History] Quetiapine Fumarate [Seroquel] 25 mg PO HS 07/22/17 [History] Megestrol Acetate [Megace] 400 mg PO DAILY udc 07/30/17 [Rx] Metoprolol [Lopressor] 12.5 mg PO BID tablet 07/30/17 [Rx] Nitrofurantoin (BID) [Macrobid] 100 mg PO BIDWM capsule 07/30/17 [Rx] Allergies/Adverse Reactions: 3 Allergy/AdvReac Type Severity Reaction Status Date / Time Donepezil [From Aricept] Allergy See Verified 07/22/17 01:04 Comments Date of admission: 07/26/17 11:18 Primary care physician: Vania Kenny MD Consults: 07/24/17 14:19 Consult to Physical Therapy [CONS] Routine Comment: Evaluate, develop and implement POC Reason for Consult: Weakness OT [Consult to Occupational Therapy] [CONS] Routine Comment: Evaluate, develop and implement POC Reason for Consult: Weakness 07/27/17 07:34 Consult to Nutrition [CONS] Routine Comment: Dementia, declining appetite. Started Megace Consulting Provider: NUTRITION Reason for Dietary Consult: PO Supplementation 07/22/17 00:53 Consult to Mopper [CONS] Routine Reason for SW Consult: Discharge planning 07/22/17 05:38 Consult to Cardiology [CONS] Routine Comment: Consulting Provider: Cardiology [facility] Reason for Consult: [place] [facility] ECG at 1528 07/21: ST-Depression V3-6, II, III , avF, in setting of SVT, spontaneously converted after 10 mins in [place] [facility], no repeat episodes, history SVT [facility] 2016, converted with 12mg Adenosine Currently in sinus rhythm. CK-MB elevated to 14, [place], troponin adynamic at .03, .04, .05. Call Completed: No 07/22/17 05:50 Consult to Neurology [CONS] Routine Consulting Provider: [facility] Reason for Consult: Acute encephalopathy with persistent hydrocephalus on CT; Call Completed: No Discharging clinician: Yanet Robledo Anticipated date of discharge: 07/30/17 - Patient Status Disposition: Transfer SNF Condition: Fair Functional capacity at discharge: uses cane/walker Overall status at discharge: patient is progressing back to baseline - Discharge Instructions Follow Up With: Vania Kenny MD [Primary Care Provider] - - Diet and Activity Activity: as per physical therapy, increase activity as tolerated Diet: advance to your usual diet Hospital course: Ms. Olguin is a 87 year old female with past medical history of cerebral infarct dementia, cardiomyopathy. She presented to the emergency department with complaint of metabolic encephalopathy, most likely from urinary retention and UTI. 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 Although there were significant white matter changes throughout the brain, there are mildly dilated ventricles but does not seem to be significantly out of proportion to her age and condition. Patient also had some SVT prior to admission. She has been evaluated by cardiology, no further treatment or recommendations. Patient has had no more episodes of SVT or any tachycardia since then. Patient has had multiple issues with urinary retention. She has a urinary tract infection. Patient currently has a Marks placed and has failed 2 voiding trials previously. She has a urinary tract infection was positive for Escherichia coli and is being treated with Macrobid 100 mg by mouth twice a day. She will need to follow up with urology for evaluation and voiding trial. A second urine has been ordered today from her Marks that was placed due to urinary retention. This afternoon, she had over 900 mL of urine in her bladder for bladder scan. Family is very supportive of patient and involved in her care. Patient's vitals are stable, labs are stable and within normal limits. Patient is appropriate for discharge. - Time Spent with Patient Total time spent providing and/or coordinating discharge services: - Constitutional Vitals: Temp Pulse Resp BP Pulse Ox 97.2 F L 76 15 145/78 99 07/30/17 11:40 07/30/17 11:40 07/30/17 11:40 07/30/17 11:40 07/30/17 11:40 General appearance: Present: cooperative, A&O X 1, pleasant, no acute distress. Absent: mild distress, A&O X 3, answers questions appropriately - Head Head exam: Present: atraumatic, normal inspection, normocephalic - Eye Eye exam: Present: normal appearance, conjuntiva pink, sclera anicteric. Absent : nystagmus - Neck Neck exam general surgery: Present: supple, trachea midline. Absent: lymphadenopathy - Respiratory Respiratory exam: Present: CTAB. Absent: accessory muscle use, rales, rhonchi, wheezes - Cardiovascular Cardiovascular exam: Present: RRR, +S1, +S2. Absent: diastolic murmur, gallop, rubs, systolic murmur - GI/Abdominal GI/Abdominal exam: Present: normal bowel sounds, soft, tenderness. Absent: distended, hepatomegaly - Extremities Exam Extremities exam: Present: normal inspection, warm, radial pulses palpable and symmetrical. Absent: calf tenderness, cyanotic, pedal edema, tenderness - Neurological Exam Neurological exam: Present: alert, oriented X3. Absent: facial droop, speech deficit - Skin Skin exam: Present: dry, intact, normal color, warm. Absent: rash
--- NOTE | 2017-07-30 16:33 | Physician Discharge Referral ---
[facility] Referral Info Provider in Charge after Transfer: PCP Institutional Level of Care: Skilled - Diagnosis (1) Acute encephalopathy Priority: Primary Status: Resolved (2) SVT (supraventricular tachycardia) Priority: Secondary Status: Resolved (3) Urinary retention Priority: Secondary Status: Acute (4) UTI (urinary tract infection) Priority: Secondary Status: Acute (5) DVT prophylaxis Priority: Secondary Status: Acute Prognosis: Poor Aware of Diagnosis: Family Aware of Prognosis: Family - Transfer Medications Home Medications: Ergocalciferol (VITAMIN D2) [Vitamin D] 800 unit PO DAILY 02/28/17 [History] Multivit with Calcium,Iron,Min [One Daily Women's] 1 tab PO DAILY 02/28/17 [ History] Mv-Mn/FA/Vit K1/Lycop/Lut/Zeax [Ocuvite Eye + Multi Tablet] 1 tab PO DAILY 02/28 [History] Quetiapine Fumarate [Seroquel] 25 mg PO HS 07/22/17 [History] Megestrol Acetate [Megace] 400 mg PO DAILY udc 07/30/17 [Rx] Metoprolol [Lopressor] 12.5 mg PO BID tablet 07/30/17 [Rx] Nitrofurantoin (BID) [Macrobid] 100 mg PO BIDWM capsule 07/30/17 [Rx] Allergies/Adverse Reactions: 3 Allergy/AdvReac Type Severity Reaction Status Date / Time Donepezil [From Aricept] Allergy See Verified 07/22/17 01:04 Comments - Respiratory Orders Smoking Cessation: Smoking cessation has been advised. For more information, call the [place] Tobacco Quit Line at 4-141-WJZS-NOW. - Lab Orders Lab Orders: 2 Step Mantoux Test per State regulation, CBC, U/A, [place] 17, CXR yearly - Ancillary Orders May use pressure relief devices daily prn, May go on KWESI w/family/respon alliance party w /meds at nurse discretion PRN, May consult with Dentist, Newspaper Correspondent, Baker Chef PRN - Mobility Orders Chair, Ambulate - Rehabiliation Orders Rehab Potential: Poor Rehab Orders: Sternal Precautions, ROM Exercises, Evaluation for Physical Therapy, Evaluation for Occupational Therapy - Treatments Skin tear care topically daily PRN per policy, May check for fecal impaction rectally daily PRN, Fleet enema rectally every other day PRN cleansing purposes - Diet Orders Regular CERTIFICATION: I certify that the transfer of the above named patient to an Extended Care Facility is necessary for the continuing treatment of the diagnosis listed. The above information is true and accurate reflection of patient's current condition. Confidential - Redisclosure prohibited without a patient's written consent.
[2017-07-30 17:32] LABS: Bilirubin,Urine Negative (Negative); Blood,Urine Negative (Negative); Clarity,Urine Clear (Clear); Color,Urine Yellow (Yellow); Glucose,Urine (UA) Normal (Normal); Ketones,Urine Negative (Negative); Leukocyte Esterase,Urine Negative (Negative); Nitrite,Urine Negative (Negative); PH,Urine 7.5 pH Units (5.0-8.0); Protein,Urine Negative (Neg-Trace); Specific Gravity,Urine 1.013 (1.010-1.025); Urobilinogen,Urine Normal (Normal)
[2017-07-31] MEDS: *HR* Heparin 5,000 UNIT/ML VIAL SQ SCH (05:48)
[2017-07-31 07:30] VITALS: BP 123/61
[2017-07-31] MEDS: Nitrofurantoin (BID) 100 MG CAPSULE PO SCH (08:38)
[2017-07-31] MEDS: Cholecalciferol (D-3) 1,000 UNIT TABLET PO SCH (08:38)
[2017-07-31] MEDS: Megestrol Acetate 400 MG/10 ML UDC PO SCH (08:39)
== END 2017-07-31 09:17 | DRG 308 ==
LOC: 3BNU → SUATTDRO 07-26 11:18 → 1NENUPED 07-27 10:33
PROVIDERS: ADMIT Internal Medicine Nephrology; ATTEND Internal Medicine